=== PATIENT | male | born 1965 | race Caucasian/White ===

== ENCOUNTER 2023-02-09 19:56 | Emergency (ER) | payer MEDICARE ==
[2023-02-09 21:16] LABS: Absolute Neutrophil Ct (ANC) 3.44 x10^3/uL (1.4-6.9); BASOPHIL % 0.7 % (0.0-0.4); Basophil (Absolute #) 0.04 x10^3/uL (0-0.4); Eosinophil % 1.9 % (0.00-5.0); Eosinophil (Absolute #) 0.11 x10^3/uL (0-0.5); Hematocrit 45.2 % (42-50); Hemoglobin 15.5 g/dL (12.5-18.0); IMMATURE GRAN # 0.01 x10^3u/L (0.00-0.03); IMMATURE GRAN % 0.2 % (0.00-0.4); Lymphocyte (Absolute #) 1.64 x10^3/uL (1.0-4.6); Lymphocytes % 28.9 % (24.0-44.0); Mean Cell Volume 90.2 fL (78-100); Mean Corpuscular Hemoglobin 30.9 pg (26-32); Mean Corpuscular Hgb Concent. 34.3 g/dL (32-36); Mean Platelet Volume 9.6 fL (7.5-11.0); Monocyte (Absolute #) 0.43 x10^3/uL (0.0-1.3); Monocytes % 7.6 % (0.0-12.0); Neutrophil % 60.7 % (36.0-66.0); Platelet Count 253 x10^3/uL (150-450); Red Blood Count 5.01 x10^6/uL (4.1-5.6); Red Cell Distribution Width 12.4 % (11.5-14.0); White Blood Count 5.7 x10^3/uL (4.0-10.5)
[2023-02-09 21:26] LABS: ALBUMIN 4.1 g/dL (3.5-5.0); ALKALINE PHOSPHATASE 97 U/L (38-126); ANION GAP 16.2 MEQ/L (5-15); BLOOD UREA NITROGEN 9 mg/dL (9-20); CHLORIDE 94 mmol/L (98-107); Calcium 8.6 mg/dL (8.4-10.2); Carbon Dioxide 27 mmol/L (22-30); Creatinine 1 0.96 mg/dL (0.66-1.25); EST GLOMERULAR FILTRATION RATE > 60.0 ML/MIN; Glucose 439 mg/dL (74-106); Potassium 3.5 mmol/L (3.5-5.1); SGOT/AST 25 U/L (17-59); SGPT/ALT 27 U/L (0-50); SODIUM 134 mmol/L (137-145); Total Protein 7.3 g/dL (6.3-8.2)
[2023-02-09 21:49] LABS: INFLUENZA A NEGATIVE (NEGATIVE); INFLUENZA B NEGATIVE (NEGATIVE); RESPIRATORY SYNCTIAL VIRUS NEGATIVE (NEGATIVE); SARS-CoV-2 Xpert Express NEGATIVE (NEGATIVE)
--- NOTE | 2023-02-09 23:05 | ERPHSYRPT ---
- History of Present Illness Time Seen by Provider: 02/09/23 20:50 Source: patient Exam Limitations: no limitations Patient Subjective Stated Complaint: pt states he has been having chest congestion and back pain, has persistent cough, body aches and pain. Triage Nursing Assessment: pt alert and oriented, answers questions approp. pt ambulatory with steady gait noted. pt reports shortness of breath with exertion. lung sounds cta bilat. skin warm and dry. pt c/o pain in upper back today. states yesterday pain started in lower back. Physician History: Patient is a 58-year-old male presents to emergency department for evaluation of cough congestion body aches mild shortness of breath with exertion. Patient has been experiencing some mild upper back pain over the past day. No trauma. No fever. No nausea vomiting or diaphoresis. Symptoms are mild to moderate in intensity. No specific worsening improving factors. Patient voices no other complaints concerns at this time. Portions of this note were created with voice recognition technology. There may be grammatical, spelling, punctuation or sound alike errors Timing/Duration: yesterday Activities at Onset: none Severity of Dyspnea-Max: moderate Severity of Dyspnea-Current: mild Possible Cause: occasional episodes Modifying Factors: Improves With: nothing Associated Symptoms: No chest pain/discomfort, No fever, No loss of appetite, No lightheadedness, No wheezing, No dizziness, No lightheadedness, No leg swelling, No painful breathing, No tightness Allergies/Adverse Reactions: No Known Drug Allergies Allergy (Verified 02/09/23 20:37) Home Medications: No Home Meds 05/01/12 [History] Hx Tetanus, Diphtheria Vaccination/Date Given: No Hx Influenza Vaccination/Date Given: No Hx Pneumococcal Vaccination/Date Given: No Immunizations Up to Date: Yes Travel Risk - International Travel Have you traveled outside of the country in past 3 weeks: No - Coronavirus Screening Are you exhibiting any of the following symptoms?: No Symptoms: Cough: New Onset, Shortness of Breath, Vomiting/Diarrhea, Loss of Taste or Smell, Headaches/Body Aches/Fatigue Close contact with a COVID-19 positive Pt in past 14-21 Days: No - Vaccine Status Have you recieved a Covid-19 vaccination: Yes Grease Remover: Moderna - Vaccination Dates Date of 2cond Vaccination (if applicable): 2020 - Review of Systems Constitutional: No Symptoms, No Fever, No Chills Eyes: No Symptoms Ears, Nose, & Throat: No Symptoms Respiratory: No Symptoms, No Cough, No Dyspnea Cardiac: No Symptoms, No Chest Pain, No Edema, No Syncope Abdominal/Gastrointestinal: No Symptoms, No Abdominal Pain, No Nausea, No Vomiting, No Diarrhea Genitourinary Symptoms: No Symptoms, No Dysuria Musculoskeletal: No Symptoms, No Back Pain, No Neck Pain Skin: No Symptoms, No Rash Neurological: No Symptoms, No Dizziness, No Focal Weakness, No Sensory Changes Psychological: No Symptoms Endocrine: No Symptoms Hematologic/Lymphatic: No Symptoms Immunological/Allergic: No Symptoms All Other Systems: Reviewed and Negative - Past Medical History Pertinent Past Medical History: Yes Neurological History: Peripheral Neuropathy Cardiac History: Hypertension Endocrine Medical History: Diabetes Type II GI Medical History: GERD - Past Surgical History Past Surgical History: Yes Other Surgical History: tarsel tunnel bilat, heel spur lt foot, rt knee scope x2 - Social History Smoking Status: Former smoker Exposure to second hand smoke: Yes Drug Use: none Patient Lives Alone: No - Nursing Vital Signs Nursing Vital Signs: Initial Vital Signs Temperature 97.8 F 02/09/23 20:20 Pulse Rate 97 H 02/09/23 20:20 Respiratory Rate 18 02/09/23 20:20 Blood Pressure 166/97 02/09/23 20:20 O2 Sat by Pulse Oximetry 99 02/09/23 20:20 Pain Scale Pain Intensity 0 - Physical Exam General Appearance: no apparent distress, alert Eye Exam: PERRL/EOMI, eyes nml inspection Ears, Nose, Throat Exam: hearing grossly normal, normal ENT inspection, normal pharynx Neck Exam: normal inspection, supple Respiratory Exam: normal breath sounds, lungs clear, No respiratory distress Cardiovascular/Chest Exam: normal heart sounds, regular rate/rhythm Abdominal/Gastrointestinal Exam: soft, normal bowel sounds, No tenderness, No distention, No mass Extremity Exam: non-tender, normal range of motion, normal inspection, no calf tenderness, no pedal edema Neurologic Exam: alert, oriented x 3, cooperative, mission assessment specialist II-XII nml as tested, sensation nml, No motor deficits Skin Exam: normal color, warm, No dry Lymphatic Exam: No adenopathy SpO2 Interpretation: normal SpO2: 98 O2 Delivery: Room Air - Course Nursing assessment & vital signs reviewed: Yes EKG Interpreted by Me: RATE, Sinus Rhythm, NORMAL AXIS, NORMAL INTERVALS (Probable anteroseptal infarct recent) - CT Exams Chest CT Interpretation: Tele-radiologist Report (Calcified pulmonary granuloma. Located left upper lobe. Subtle alveolar opacities are seen in the upper lobes bilaterally. Spondylosis is demonstrated. There is narrowing of the interverte bral discs at T2-3-4. There is approximately 3 mm anterior malalignment of T2 in relation to T3 with mild s) Ordered Tests: Active Orders 24 hr Category Date Time Status Jet Aircraft Servicer STAT Care 02/09/23 20:39 Active EKG-ER Only STAT Care 02/09/23 20:38 Active IV Insertion STAT Care 02/09/23 20:38 Active CHEST 1 VIEW (PORTABLE) Stat Exams 02/09/23 21:33 Taken CHEST WITH CONTRAST [CT] Stat Exams 02/09/23 23:33 Taken CBC Q48H Lab 02/11/23 06:00 Ordered CBC Q48H Lab 02/13/23 06:00 Ordered CBC Q48H Lab 02/15/23 06:00 Ordered CBC Q48H Lab 02/17/23 06:00 Ordered CBC Q48H Lab 02/19/23 06:00 Ordered CBC Q48H Lab 02/21/23 06:00 Ordered CBC Q48H Lab 02/23/23 06:00 Ordered CBC Stat Lab 02/10/23 03:03 Completed CBC W DIFF Stat Lab 02/09/23 20:40 Completed CMP Stat Lab 02/09/23 20:40 Completed D-DIMER QUANTITATIVE Stat Lab 02/09/23 20:40 Completed Lactic Acid Routine Lab 02/10/23 00:45 Completed Lactic Acid Stat Lab 02/09/23 20:48 Completed POCT GLUCOSE Stat Lab 02/10/23 01:45 Completed PROTIME WITH INR Stat Lab 02/10/23 03:03 Completed PTT Q4H Lab 02/10/23 06:30 Ordered PTT Q4H Lab 02/10/23 10:30 Ordered PTT Q4H Lab 02/10/23 14:30 Ordered PTT Q4H Lab 02/10/23 18:30 Ordered PTT Q4H Lab 02/10/23 22:30 Ordered PTT Q4H Lab 02/11/23 02:30 Ordered PTT Q4H Lab 02/11/23 06:30 Ordered PTT Q4H Lab 02/11/23 10:30 Ordered PTT Q4H Lab 02/11/23 14:30 Ordered PTT Q4H Lab 02/11/23 18:30 Ordered PTT Q4H Lab 02/11/23 22:30 Ordered PTT Stat Lab 02/10/23 03:03 Completed TROPONIN Q4H Lab 02/09/23 20:40 Completed TROPONIN Q4H Lab 02/10/23 00:30 Completed TROPONIN Q4H Lab 02/10/23 04:45 Ordered Medication Summary Generic Name Dose Route Start Last Admin Trade Name Freq PRN Reason Stop Dose Admin Heparin Sodium/Dextrose 25,000 units in 250 mls @ 11.049 mls/hr 02/10/23 02:30 02/10/23 03:25 Heparin 25,000 Units/D5w: Use Order Set Ita IV 03/12/23 02:29 12 units/kg/hr .[id number] MOUNIKA 11.049 mls/hr Administration Protocol 12 UNITS/KG/HR Discontinued Medications Generic Name Dose Route Start Last Admin Trade Name Freq PRN Reason Stop Dose Admin Heparin Sodium (Beef Lung) 5,000 unit 02/10/23 02:24 02/10/23 03:25 Heparin 5000 Units/0.5 Ml 5,000 Unit/0.5 Ml Syr IV 02/10/23 02:25 5,000 unit STAT ONE Administration Heparin Sodium (Beef Lung) Confirm 02/10/23 02:33 Heparin 5000 Units/0.5 Ml 5,000 Unit/0.5 Ml Syr Administered 02/10/23 02:34 Dose 5,000 unit .ROUTE .STK-MED ONE Sodium Chloride 1,000 mls @ 999 mls/hr 02/10/23 00:00 02/10/23 01:32 Sodium Chloride 0.9% 1000 Ml IV 02/10/23 01:00 Infused .Q1H1M STA Infusion Sodium Chloride Confirm 02/10/23 00:03 Sodium Chloride 0.9% 1000 Ml Administered 02/10/23 00:04 Dose 1,000 mls @ ud .ROUTE .STK-MED ONE Levofloxacin 500 mg 02/10/23 02:05 02/10/23 02:08 Levofloxacin 500 Mg Tablet PO 02/10/23 02:06 500 mg STAT ONE Administration Levofloxacin Confirm 02/10/23 02:08 Levofloxacin 500 Mg Tablet Administered 02/10/23 02:09 Dose 500 mg .ROUTE .STK-MED ONE Lab/Rad Data: Laboratory Result Diagrams 02/10/23 03:03 02/09/23 20:40 Laboratory Results 02/10/23 02/10/23 02/10/23 Range/Units 03:03 03:03 01:45 WBC 6.0 (4.0-10.5) x10^3/uL RBC 5.09 (4.1-5.6) x10^6/uL Hgb 15.7 (12.5-18.0) g/dL Hct 46.4 (42-50) % MCV 91.2 (78-100) fL MCH 30.8 (26-32) pg MCHC 33.8 (32-36) g/dL RDW 12.2 (11.5-14.0) % Plt Count 254 (150-450) x10^3/uL MPV 9.1 (7.5-11.0) fL Gran % (36.0-66.0) % Immature Gran % (Auto) (0.00-0.4) % Nucleat RBC Rel Count (0.00-0.1) % Eos # (Auto) (0-0.5) x10^3/uL Immature Gran # (Auto) (0.00-0.03) x10^3u/L Absolute Lymphs (auto) (1.0-4.6) x10^3/uL Absolute Monos (auto) (0.0-1.3) x10^3/uL Absolute Nucleated RBC (0.00-0.01) x10^3u/L Lymphocytes % (24.0-44.0) % Monocytes % (0.0-12.0) % Eosinophils % (0.00-5.0) % Basophils % (0.0-0.4) % Absolute Granulocytes (1.4-6.9) x10^3/uL Basophils # (0-0.4) x10^3/uL PT 9.6 (9.4-12.5) SECONDS INR 0.87 (0.8-3.0) APTT 25.7 (25.1-36.5) SECONDS D-Dimer (0.0-0.50) mg/L Sodium (137-145) mmol/L Potassium (3.5-5.1) mmol/L Chloride (98-107) mmol/L Carbon Dioxide (22-30) mmol/L Anion Gap (5-15) MEQ/L BUN (9-20) mg/dL Creatinine (0.66-1.25) mg/dL Estimated GFR ML/MIN Glucose (74-106) mg/dL POC Glucometer 137 H (74 to 106) mg/dL Lactic Acid Calcium (8.4-10.2) mg/dL Total Bilirubin (0.2-1.3) mg/dL AST (17-59) U/L ALT (0-50) U/L Alkaline Phosphatase (38-126) U/L Troponin I (0.000-0.034) ng/mL Serum Total Protein (6.3-8.2) g/dL Albumin (3.5-5.0) g/dL Influenza Type A Ag (NEGATIVE) Influenza Type B Ag (NEGATIVE) RSV (PCR) (NEGATIVE) SARS-CoV-2 (PCR) (NEGATIVE) 02/10/23 02/10/23 02/09/23 Range/Units 00:45 00:30 20:55 WBC (4.0-10.5) x10^3/uL RBC (4.1-5.6) x10^6/uL Hgb (12.5-18.0) g/dL Hct (42-50) % MCV (78-100) fL MCH (26-32) pg MCHC (32-36) g/dL RDW (11.5-14.0) % Plt Count (150-450) x10^3/uL MPV (7.5-11.0) fL Gran % (36.0-66.0) % Immature Gran % (Auto) (0.00-0.4) % Nucleat RBC Rel Count (0.00-0.1) % Eos # (Auto) (0-0.5) x10^3/uL Immature Gran # (Auto) (0.00-0.03) x10^3u/L Absolute Lymphs (auto) (1.0-4.6) x10^3/uL Absolute Monos (auto) (0.0-1.3) x10^3/uL Absolute Nucleated RBC (0.00-0.01) x10^3u/L Lymphocytes % (24.0-44.0) % Monocytes % (0.0-12.0) % Eosinophils % (0.00-5.0) % Basophils % (0.0-0.4) % Absolute Granulocytes (1.4-6.9) x10^3/uL Basophils # (0-0.4) x10^3/uL PT (9.4-12.5) SECONDS INR (0.8-3.0) APTT (25.1-36.5) SECONDS D-Dimer (0.0-0.50) mg/L Sodium (137-145) mmol/L Potassium (3.5-5.1) mmol/L Chloride (98-107) mmol/L Carbon Dioxide (22-30) mmol/L Anion Gap (5-15) MEQ/L BUN (9-20) mg/dL Creatinine (0.66-1.25) mg/dL Estimated GFR ML/MIN Glucose (74-106) mg/dL POC Glucometer (74 to 106) mg/dL Lactic Acid 1.3 Calcium (8.4-10.2) mg/dL Total Bilirubin (0.2-1.3) mg/dL AST (17-59) U/L ALT (0-50) U/L Alkaline Phosphatase (38-126) U/L Troponin I 0.021 (0.000-0.034) ng/mL Serum Total Protein (6.3-8.2) g/dL Albumin (3.5-5.0) g/dL Influenza Type A Ag NEGATIVE (NEGATIVE) Influenza Type B Ag NEGATIVE (NEGATIVE) RSV (PCR) NEGATIVE (NEGATIVE) SARS-CoV-2 (PCR) NEGATIVE (NEGATIVE) 02/09/23 02/09/23 02/09/23 Range/Units 20:48 20:40 20:40 WBC (4.0-10.5) x10^3/uL RBC (4.1-5.6) x10^6/uL Hgb (12.5-18.0) g/dL Hct (42-50) % MCV (78-100) fL MCH (26-32) pg MCHC (32-36) g/dL RDW (11.5-14.0) % Plt Count (150-450) x10^3/uL MPV (7.5-11.0) fL Gran % (36.0-66.0) % Immature Gran % (Auto) (0.00-0.4) % Nucleat RBC Rel Count (0.00-0.1) % Eos # (Auto) (0-0.5) x10^3/uL Immature Gran # (Auto) (0.00-0.03) x10^3u/L Absolute Lymphs (auto) (1.0-4.6) x10^3/uL Absolute Monos (auto) (0.0-1.3) x10^3/uL Absolute Nucleated RBC (0.00-0.01) x10^3u/L Lymphocytes % (24.0-44.0) % Monocytes % (0.0-12.0) % Eosinophils % (0.00-5.0) % Basophils % (0.0-0.4) % Absolute Granulocytes (1.4-6.9) x10^3/uL Basophils # (0-0.4) x10^3/uL PT (9.4-12.5) SECONDS INR (0.8-3.0) APTT (25.1-36.5) SECONDS D-Dimer 0.93 H* (0.0-0.50) mg/L Sodium (137-145) mmol/L Potassium (3.5-5.1) mmol/L Chloride (98-107) mmol/L Carbon Dioxide (22-30) mmol/L Anion Gap (5-15) MEQ/L BUN (9-20) mg/dL Creatinine (0.66-1.25) mg/dL Estimated GFR ML/MIN Glucose (74-106) mg/dL POC Glucometer (74 to 106) mg/dL Lactic Acid 3.3 H Calcium (8.4-10.2) mg/dL Total Bilirubin (0.2-1.3) mg/dL AST (17-59) U/L ALT (0-50) U/L Alkaline Phosphatase (38-126) U/L Troponin I 0.027 (0.000-0.034) ng/mL Serum Total Protein (6.3-8.2) g/dL Albumin (3.5-5.0) g/dL Influenza Type A Ag (NEGATIVE) Influenza Type B Ag (NEGATIVE) RSV (PCR) (NEGATIVE) SARS-CoV-2 (PCR) (NEGATIVE) 02/09/23 02/09/23 02/09/23 Range/Units 20:40 20:40 00:45 WBC 5.7 (4.0-10.5) x10^3/uL RBC 5.01 (4.1-5.6) x10^6/uL Hgb 15.5 (12.5-18.0) g/dL Hct 45.2 (42-50) % MCV 90.2 (78-100) fL MCH 30.9 (26-32) pg MCHC 34.3 (32-36) g/dL RDW 12.4 (11.5-14.0) % Plt Count 253 (150-450) x10^3/uL MPV 9.6 (7.5-11.0) fL Gran % 60.7 (36.0-66.0) % Immature Gran % (Auto) 0.2 (0.00-0.4) % Nucleat RBC Rel Count 0.0 (0.00-0.1) % Eos # (Auto) 0.11 (0-0.5) x10^3/uL Immature Gran # (Auto) 0.01 (0.00-0.03) x10^3u/L Absolute Lymphs (auto) 1.64 (1.0-4.6) x10^3/uL Absolute Monos (auto) 0.43 (0.0-1.3) x10^3/uL Absolute Nucleated RBC 0.00 (0.00-0.01) x10^3u/L Lymphocytes % 28.9 (24.0-44.0) % Monocytes % 7.6 (0.0-12.0) % Eosinophils % 1.9 (0.00-5.0) % Basophils % 0.7 (0.0-0.4) % Absolute Granulocytes 3.44 (1.4-6.9) x10^3/uL Basophils # 0.04 (0-0.4) x10^3/uL PT (9.4-12.5) SECONDS INR (0.8-3.0) APTT (25.1-36.5) SECONDS D-Dimer (0.0-0.50) mg/L Sodium 134 L (137-145) mmol/L Potassium 3.5 (3.5-5.1) mmol/L Chloride 94 L (98-107) mmol/L Carbon Dioxide 27 (22-30) mmol/L Anion Gap 16.2 H (5-15) MEQ/L BUN 9 (9-20) mg/dL Creatinine 0.96 (0.66-1.25) mg/dL Estimated GFR > 60.0 ML/MIN Glucose 439 H (74-106) mg/dL POC Glucometer (74 to 106) mg/dL Lactic Acid Cancelled Calcium 8.6 (8.4-10.2) mg/dL Total Bilirubin 0.70 (0.2-1.3) mg/dL AST 25 (17-59) U/L ALT 27 (0-50) U/L Alkaline Phosphatase 97 (38-126) U/L Troponin I (0.000-0.034) ng/mL Serum Total Protein 7.3 (6.3-8.2) g/dL Albumin 4.1 (3.5-5.0) g/dL Influenza Type A Ag (NEGATIVE) Influenza Type B Ag (NEGATIVE) RSV (PCR) (NEGATIVE) SARS-CoV-2 (PCR) (NEGATIVE) - Progress Progress: improved Air Movement: good Progress Note: Repeat EKG suggestive of ST elevation with anterior injury. However troponin still in negative range. Trending downward. Patient has no active chest pain 02/10/23 02:26 Work-up includes chest x-ray unremarkable. CT chest suggestive of possible subtle upper lobe pneumonia. CBC within normal limits. CMP shows mild hyponatremia at 134. Patient received IV fluids. COVID-negative. D-dimer positive. CTA chest negative. Patient's initial presentation revealed a lactic acidosis of 3.3. After IV fluids lactic acidosis improved to 1.3. Troponin in the normal range x2. However EKG appears/suggestive of ACS. We will admit patient. For further evaluation and treatment for possible ACS. Coags obtained. We will initiate heparin drip. However no nitro administered as patient has no chest pain at this time. 02/10/23 02:27 Complexity of problem addressed is moderate. New diagnosis with uncertain prognosis no critical care time Test ordered. Test reviewed. 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 Discussion of management discussed with Dr. West. Dr. West excepted transfer. Activators hospitalist at [facility]. Risk of complication and or morbidity/mortality of management is high. Patient will be transferred for further evaluation and treatment. Dr. Carlton will be the guzzler builder on consult upon transfer. Patient agrees to transfer to [facility] for further evaluation and treatment. Portions of this note were created with voice recognition technology. There may be grammatical, spelling, punctuation or sound alike errors 02/10/23 06:50 Blood Culture(s) Obtained: No Antibiotics given: No Counseled pt/family regarding: lab results, diagnosis, rad results - Departure Departure Disposition: Observation Clinical Impression: Elevated d-dimer, Lactic acidosis, Hyperglycemia, Pneumonia Condition: Stable Critical Care Time: No Referrals: CHAD EM NP [Primary Care Provider] - Follow up/PCP as directed Instructions: Pneumonia, Adult ED Additional Instructions: Discharge/Care Plan ANNE MARIE MORROW was seen on 02/10/23 in the Emergency Room. The patient was counseled regarding Diagnosis,Lab results, Imaging studies, need for follow up and when to return to the Emergency Room. Prescriptions given: Discharge Note I have spoken with the patient and/or caregivers. I have explained the patient's condition, diagnosis and treatment plan based on the information available to me at this time. I have answered the patient's and/or caregiver's questions and addressed any concerns. The patient and/or caregivers have as good understanding of the patient's diagnosis, condition and treatment plan as can be expected at this point. The vital signs have been stable. The patient's condition is stable and appropriate for discharge from the emergency department. The patient will pursue further outpatient evaluation with the primary care physician or other designated or consulting physician as outlined in the discharge instructions. The patient and/or caregivers are agreeable to this plan of care and follow-up instructions have been explained in detail. The patient and/or caregivers have received these instruction. The patient/and or caregivers are aware that any significant change in condition or worsening of symptoms should prompt an immediate return to this or the closest emergency department or call 911. Prescriptions: Levofloxacin [Levaquin 500 MG Tablet] 500 mg PO DAILY #7 tablet
[2023-02-10] MEDS ORDERED: Sodium Chloride 0.9% 1000 ML 1,000 ML IV STA
[2023-02-10] MEDS ORDERED: Sodium Chloride 0.9% 1000 ML 1,000 ML ONE (00:03)
[2023-02-10] MEDS ORDERED: Levofloxacin 500 MG Tablet PO ONE (02:05)
[2023-02-10] MEDS ORDERED: Levofloxacin 500 MG Tablet ONE (02:08)
[2023-02-10] MEDS ORDERED: HEPARIN 5000 UNITS/0.5 ML (HIGH RISK MED) IV ONE (02:24)
[2023-02-10] MEDS ORDERED: Heparin 25,000 units/D5W: USE ORDER SET PROTO 25,000 UNITS/250 ML BAG IV SCH (02:30)
[2023-02-10] MEDS ORDERED: Heparin 25,000 units/D5W: USE ORDER SET PROTO 25,000 UNITS/250 ML BAG IV ONE (02:33)
[2023-02-10] MEDS ORDERED: HEPARIN 5000 UNITS/0.5 ML (HIGH RISK MED) ONE (02:33)
[2023-02-10 03:05] LABS: Hematocrit 46.4 % (42-50); Hemoglobin 15.7 g/dL (12.5-18.0); Mean Cell Volume 91.2 fL (78-100); Mean Corpuscular Hemoglobin 30.8 pg (26-32); Mean Corpuscular Hgb Concent. 33.8 g/dL (32-36); Mean Platelet Volume 9.1 fL (7.5-11.0); Platelet Count 254 x10^3/uL (150-450); Red Blood Count 5.09 x10^6/uL (4.1-5.6); Red Cell Distribution Width 12.2 % (11.5-14.0)
[2023-02-10 03:21] LABS: INR 0.87 (0.8-3.0); PROTIME 9.6 SECONDS (9.4-12.5); PTT 25.7 SECONDS (25.1-36.5)
--- NOTE | 2023-02-10 08:48 | XRAY ---
Indication: Short of breath. Elevated d-dimer. Multiple contiguous axial images obtained through the chest using 80 cc Isovue 370 contrast and PE protocol. Comparison: None Good opacification of the pulmonary arteries to include the lobar and segmental branches. No pulmonary embolus. Heart not enlarged. Aorta is normal in course and caliber. No pathologic mediastinal/hilar lymphadenopathy. Lungs demonstrate subtle patchy left upper lobe/lingula ground glass airspace disease. No consolidation or large effusion. Incidental small left apical calcified granuloma. Bony thorax intact with moderate degenerative changes throughout the spine greatest at T2-T4 levels. Limited upper abdomen including adrenal glands are unremarkable. Impression: 1. Negative pulmonary embolus. 2. Subtle patchy left upper lobe/lingula ground glass airspace disease. 2. Chronic findings including degenerative spondylosis and old granulomatous disease. Comment: Preliminary interpretation made by [facility]. No critical discrepancy.
--- NOTE | 2023-02-10 08:48 | XRAY ---
Indication: Cough and dyspnea on exertion. Comparison: May 01, 2012 Portable apical lordotic chest demonstrates new CT proven subtle lingula groundglass airspace disease. Remaining heart and lungs unremarkable again with incidental left apical calcified granuloma. Bony thorax intact again with mild degenerative changes. New bilateral nipple jewelry.
[2023-02-10 14:09] VITALS: BP 180/91; PULSE 97; O2SAT 97
== END 2023-02-10 14:46 | disposition short-term general hospital (02) ==
LOC: ED 19:56
DX: J18.9 Pneumonia, unspecified organism (principal); R79.1 Abnormal coagulation profile; E87.20 Acidosis, unspecified; E11.65 Type 2 diabetes mellitus with hyperglycemia; R05.9 Cough, unspecified; M79.10 Myalgia, unspecified site; R06.02 Shortness of breath; M54.6 Pain in thoracic spine; E11.42 Type 2 diabetes mellitus with diabetic polyneuropathy; I10 Essential (primary) hypertension
CPT/HCPCS: 0241U; 36000; 36415; 71045; 71260; 80053; 82947; 83605; 84484; 85025; 85027; 85379; 85610; 85730; 93005; 93041; 96360; 96365; 96374; 99285; J1644; A9270-GY

== ENCOUNTER 2025-09-01 23:11 | Emergency (ER) | payer MEDICARE ==
[2025-09-01 23:22] VITALS: BP 169/106; PULSE 110; RESP 18; TEMP 98.5; O2SAT 97
[2025-09-01] MEDS: XYLOCAINE 1% HCL 20 ML MDV IJ STA (23:36)
[2025-09-01] MEDS ORDERED: XYLOCAINE 1% HCL 20 ML MDV ONE (23:42)
[2025-09-02] MEDS ORDERED: Adacel Vial IM ONE (00:03)
[2025-09-02] MEDS: Adacel Vial IM ONE (00:05)
[2025-09-02] MEDS ORDERED: NORCO 5/325 MG ONE (00:05)
[2025-09-02] MEDS: NORCO 5/325 MG PO ONE (00:07)
--- NOTE | 2025-09-02 00:08 | ERPHSYRPT ---
- History of Present Illness Time Seen by Provider: 09/01/25 23:30 Source: patient, other Exam Limitations: no limitations Patient Subjective Stated Complaint: Pt. states, "I got a fishing hook stuck in my arm. My diana cut both the barbed sides, but the long part is still stuck in my arm." Triage Nursing Assessment: Pt. ambulates to room without difficulty accompanied by a friend. He is A&Ox3, Skin P/W/D, Resp. even unlabored. 3 small puncture sites to left arm above elbow. No active bleeding. Physician History: This is a right handed 60-year-old white male patient arrives by private vehicle accompanied by family/friend after accidentally having a fishhook stuck in the skin of his left elbow. He is friend/family member cut both of the barbed ends but ended up losing the remainder of the fishhook subcutaneously and the skin/tissue overlying the left elbow. Patient tetanus status is not up-to-date. Timing/Duration: today Quality: painful Severity: mild (To moderate) Location: extremities (Skin and subcutaneous tissue overlying left elbow) Possible Causes: other (Hilbert) Associated Symptoms: denies symptoms Allergies/Adverse Reactions: No Known Drug Allergies Allergy (Verified 02/09/23 20:37) Home Medications: Aspirin EC 81 mg [Ecotrin 81 mg] 81 mg PO DAILY 09/01/25 [History] Omeprazole 40 mg PO DAILY 09/01/25 [History] Rosuvastatin Calcium 20 mg PO DAILY 09/01/25 [History] Hx Tetanus, Diphtheria Vaccination/Date Given: No Hx Influenza Vaccination/Date Given: No Hx Pneumococcal Vaccination/Date Given: No Immunizations Up to Date: No Travel Risk - International Travel Have you traveled outside of the country in past 3 weeks: No - Emerging Infectious Disease Are you exhibiting symptoms associated with any current EIDs: No - Review of Systems Constitutional: No Symptoms Eyes: No Symptoms Ears, Nose, & Throat: No Symptoms Respiratory: No Symptoms Cardiac: No Symptoms Abdominal/Gastrointestinal: No Symptoms Genitourinary Symptoms: No Symptoms Musculoskeletal: No Symptoms Skin: Other (Hilbert embedded in the subcutaneous tissue overlying left elbow) Psychological: No Symptoms Endocrine: No Symptoms Hematologic/Lymphatic: No Symptoms Immunological/Allergic: No Symptoms All Other Systems: Reviewed and Negative - Past Medical History Pertinent Past Medical History: Yes Neurological History: Peripheral Neuropathy ENT History: Cataracts Cardiac History: High Cholesterol, Hypertension Endocrine Medical History: Diabetes Type II GI Medical History: GERD Psycho-Social History: Anxiety, Depression Other Medical History: restless legg - Past Surgical History Past Surgical History: Yes Other Surgical History: tarsel tunnel bilat, heel spur lt foot, rt knee scope x2 - Social History Smoking Status: Former smoker Exposure to second hand smoke: Yes Drug Use: none - Social Determinants of Health Will the patient participate in the screening: Declined to provide - Nursing Vital Signs Nursing Vital Signs: Initial Vital Signs Temperature 98.5 F 09/01/25 23:11 Pulse Rate 110 H 09/01/25 23:11 Respiratory Rate 18 09/01/25 23:11 Blood Pressure 169/106 09/01/25 23:11 O2 Sat by Pulse Oximetry 97 09/01/25 23:11 Pain Scale Pain Intensity 8 - Physical Exam General Appearance: no apparent distress, alert, anxiety Eye Exam: PERRL/EOMI, eyes nml inspection Ears, Nose, Throat Exam: normal ENT inspection, moist mucous membranes Neck Exam: normal inspection, non-tender, supple, full range of motion Respiratory Exam: airway intact, No chest tenderness, No respiratory distress Cardiovascular Exam: regular rate/rhythm, normal heart sounds, normal peripheral pulses Gastrointestinal/Abdomen Exam: No tenderness Rectal Exam: not done Back Exam: normal inspection, normal range of motion, No CVA tenderness, No vertebral tenderness Extremity Exam: normal inspection, normal range of motion, pelvis stable, tenderness (Tender area skin and subcutaneous tissue overlying the left elbow) Neurologic Exam: alert, oriented x 3, cooperative, novelty maker II-XII nml as tested, normal mood/affect, nml cerebellar function, nml station & gait, sensation nml Skin Exam: other (See above extremity section) Lymphatic Exam: No adenopathy SpO2 Interpretation: normal SpO2: 97 O2 Delivery: Room Air Procedures - Additional Procedures Progress: Timeout was performed at approximately 11:35 PM. The area overlying the fishhook entrance site and tender area was prepped with Betadine swabs. Next, approximately 5 cc total of lidocaine 1% plain was used to anesthetize the skin and subcutaneous tissue. Using 2 hemostats, we were able to locate and remove the remaining fishhook/foreign body. X-ray of the left elbow shows no retained radiopaque foreign body. The area was again cleaned with Betadine swabs and the skin edges of the 1-1/2 cm skin incision site made with 11 blade was approximated with 3 skin karena. There were no complications and patient tolerated the procedure well. The area was cleaned and dried and antibiotic ointment and bandage was placed overlying this site. - Course Nursing assessment & vital signs reviewed: Yes Ordered Tests: Active Orders 24 hr Category Date Time Status ELBOW (2 VIEW) Stat Exams 09/01/25 23:47 Ordered Medication Summary Discontinued Medications Generic Name Dose Route Start Last Admin Trade Name Gloria PRN Reason Stop Dose Admin Diphtheria/Tetanus/Acell Pertussis 0.5 ml 09/02/25 00:01 Tdap --Diph,Pertuss(Acell),Tet Vac/Pf 0.5 Ml Vial IM 09/02/25 00:02 .ONCE ONE Lidocaine HCl 5 ml 09/01/25 23:36 09/01/25 23:36 Lidocaine Hcl 1% 20 Ml Mdv 20 Ml Ml IJ 09/01/25 23:37 5 ml STAT STA Administration Lidocaine HCl Confirm 09/01/25 23:42 Lidocaine Hcl 1% 20 Ml Mdv 20 Ml Ml Administered 09/01/25 23:43 Dose 5 ml .ROUTE .Infoflow ONE - Progress Progress: improved, re-examined Progress Note: 09/02/25 00:07 My medical decision making and the assignment of low complexity of this patient's medical issue today is based on review of the patient's past medical history, review the patient's medication list, review the patient drug allergy list, history of present illness and physical findings on examination. The workup includes performing the foreign body removal followed by confirmation x- ray of the left elbow. Differential diagnosis included but not limited to foreign body in the subcutaneous tissue layer, no foreign body in the subcutaneous tissue layer, skin abrasion, skin laceration. I interpreted the preliminary x-ray report of left elbow. I see no retained radiopaque foreign body. Counseled pt/family regarding: diagnosis, need for follow-up, rad results Medical Desision Making - Independent Historian Additional History obtained from: Relative/friend - Diagnostic Testing Diagnostic test were ordered, analyzed, and reviewed by me: Yes Radiological Interpretation: Interpreted by me - Risk of complications Low Risk: Low risk of morbidity from additional dx testing or treatment - Departure Departure Disposition: Home Clinical Impression: Foreign body (FB) in soft tissue Condition: Stable Critical Care Time: No Referrals: CHAD EM NP [Primary Care Provider, [facility]] - Follow up/PCP as directed Additional Instructions: Keep the surgical site staple line dry for 24 hours. After 24 hours you may rinse the site off with warm soapy water. Blot dry use a vice chairman and reapply thin layer of antibiotic ointment of choice. Cover with a bandage. Staple removal in 8 to 10 days. Use plain Tylenol and ibuprofen if there are no contraindications to do so, for pain control.
--- NOTE | 2025-09-02 08:44 | XRAY ---
Indication: Foreign body. Comparison: None 3 view left elbow demonstrates posterior soft tissue swelling/emphysema. Tiny spurring radial head and olecranon process. No other bony, articular, or soft tissue abnormalities.
== END 2025-09-02 00:25 | disposition home or self-care (01) ==
LOC: ED 23:11
DX: S51.022A Laceration with foreign body of left elbow, initial encounter (principal); W45.3XXA Fishing hook entering through skin, initial encounter; I10 Essential (primary) hypertension; E11.42 Type 2 diabetes mellitus with diabetic polyneuropathy; Z79.899 Other long term (current) drug therapy; Z23 Encounter for immunization

== ENCOUNTER 2025-09-15 14:50 | Observation (INO) | payer MEDICARE ==
[2025-09-15] MEDS ORDERED: PROVENTIL 2.5 MG/3 ML NEB IH ONE (15:25)
[2025-09-15 15:30] LABS: BASOPHIL % 0.5 % (0.2-1.2); Basophil (Absolute #) 0.06 x10^3/uL (0.01-0.08); Eosinophil (Absolute #) 0.14 x10^3/uL (0.04-0.54); Hematocrit 42.8 % (40.1-51.0); Hemoglobin 14.3 g/dL (13.7-17.5); IMMATURE GRAN # 0.02 x10^3u/L (0.001-0.031); IMMATURE GRAN % 0.2 % (0.001-0.429); Lymphocyte (Absolute #) 1.85 x10^3/uL (1.32-3.57); Mean Corpuscular Hemoglobin 30.3 pg (25.7-32.2); Mean Corpuscular Hgb Concent. 33.4 g/dL (32.3-36.5); Monocyte (Absolute #) 1.00 x10^3/uL (0.30-0.82); NUCLEATED RBC # 0.00 x10^3u/L (0.00-0.012); NUCLEATED RBC % 0.0 % (0.00-0.2); Platelet Count 298 x10^3/uL (163-337); Red Blood Count 4.72 x10^6/uL (4.63-6.08); White Blood Count 13.0 x10^3/uL (4.23-9.07)
--- NOTE | 2025-09-15 15:30 | ERPHSYRPT ---
- History of Present Illness Patient Subjective Stated Complaint: patient states that he has recently gotten the pneumococcal, covid, and flu vaccine, congestion, body, patient states he has pproductive cough t Triage Nursing Assessment: patient presents to ed via private vehicle, patient able to ambulate into ed, patient alert and oriented x 4, patient skin p/w/d, complains of some sob, body aches, productive cough, congestion, patient has wheezing throughout all lung wood, oxygen saturation WNL at 96% on room air upon arrival, denies chest pain, afebrile, patient coughing up yellow phlegm Physician History: Cough congestion, onset of symptoms about 2 weeks ago, states symptoms started after he received his immunization for COVID/flu/pneumococcus(He received all of his immunizations 1 visit), He feels short of breath,He has no energy, Cough is nonproductive Timing/Duration: week(s) (2) Cough Quality/Degree: moderate Possible Cause: no prior episodes Modifying Factors: Improves With: lying down Associated Symptoms: nasal congestion, shortness of breath Allergies/Adverse Reactions: lisinopril Allergy (Verified 09/15/25 14:58) Home Medications: Aspirin EC 81 mg [Ecotrin 81 mg] 81 mg PO DAILY 09/01/25 [History] Omeprazole 40 mg PO DAILY 09/01/25 [History] Rosuvastatin Calcium 20 mg PO DAILY 09/01/25 [History] Buspirone HCl 5 mg [Buspar 5 mg] 5 mg PO BID 09/15/25 [History] Gabapentin 800 mg PO TID 09/15/25 [History] Hydroxyzine HCl 25 mg [Atarax 25 mg] 25 mg PO TID PRN 09/15/25 [History] Hx Tetanus, Diphtheria Vaccination/Date Given: Yes Hx Influenza Vaccination/Date Given: Yes Hx Pneumococcal Vaccination/Date Given: Yes Immunizations Up to Date: Yes Travel Risk - International Travel Have you traveled outside of the country in past 3 weeks: No - Emerging Infectious Disease Are you exhibiting symptoms associated with any current EIDs: Yes Symptoms: Diarrhea, Headaches/Body Aches/, Shortness of Breath - Past Medical History Pertinent Past Medical History: Yes Neurological History: Peripheral Neuropathy ENT History: Cataracts Cardiac History: High Cholesterol, Hypertension Endocrine Medical History: Diabetes Type II GI Medical History: GERD Psycho-Social History: Anxiety, Depression Other Medical History: restless legg - Past Surgical History Past Surgical History: Yes Other Surgical History: tarsel tunnel bilat, heel spur lt foot, rt knee scope x2 - Social History Smoking Status: Former smoker Exposure to second hand smoke: No Drug Use: none - Social Determinants of Health Will the patient participate in the screening: Yes Do you worry about a steady place to live?: No Do you have any problems with any of the following?: No known problems In the past 12 months,have you had to go without utilities?: No Transportation Issues: No Has anyone in your support network made you feel unsafe?: No Have you or anyone in your house had to go w/o enough food: No - Nursing Vital Signs Nursing Vital Signs: Initial Vital Signs Temperature 98.5 F 09/15/25 14:51 Pulse Rate 98 H 09/15/25 14:51 Respiratory Rate 14 09/15/25 14:51 Blood Pressure 154/89 09/15/25 14:51 O2 Sat by Pulse Oximetry 96 09/15/25 14:51 Pain Scale Pain Intensity 8 - Physical Exam General Appearance: no apparent distress, alert Eye Exam: PERRL/EOMI, eyes nml inspection Ears, Nose, Throat Exam: TMs normal, moist mucous membranes, pharyngeal erythema, other (Nasal congestion, postnasal drainage) Neck Exam: normal inspection, non-tender, supple, full range of motion, No Brudzinski, No Kernig's Respiratory Exam: rhonchi, wheezing, No respiratory distress Cardiovascular Exam: regular rate/rhythm, normal heart sounds Gastrointestinal/Abdomen Exam: soft, No tenderness Back Exam: normal inspection, No CVA tenderness, No vertebral tenderness Extremity Exam: normal inspection, normal range of motion Neurologic Exam: alert, oriented x 3, cooperative, normal mood/affect, sensation nml, No motor deficits Skin Exam: normal color, warm, dry, No rash Lymphatic Exam: No adenopathy SpO2 Interpretation: normal SpO2: 96 - Course EKG Interpreted by Me: RATE (97), Sinus Rhythm, NORMAL AXIS, NORMAL INTERVALS, NORMAL QRS, NORMAL ST-T Ordered Tests: Active Orders 24 hr Category Date Time Status EKG-ER Only STAT Care 09/15/25 15:15 Active IV Insertion STAT Care 09/15/25 15:40 Active CHEST 1 VIEW (PORTABLE) Stat Exams 09/15/25 15:15 Completed CBC W DIFF Stat Lab 09/15/25 15:25 Completed CMP Stat Lab 09/15/25 15:25 Completed Lactic Acid Stat Lab 09/15/25 15:25 Completed VENOUS BLOOD GAS Stat Lab 09/15/25 15:33 Completed Respiratory Therapy Assessment DAILY RT 09/15/25 15:40 Active Medication Summary Discontinued Medications Generic Name Dose Route Start Last Admin Trade Name Freq PRN Reason Stop Dose Admin Hydrocodone Bitart/Acetaminophen 1 tab 09/15/25 15:32 09/15/25 15:34 Hydrocodone/Apap 5/325 1 Tab Tablet PO 09/15/25 15:33 1 tab STAT ONE Administration Hydrocodone Bitart/Acetaminophen Confirm 09/15/25 15:34 Hydrocodone/Apap 5/325 1 Tab Tablet Administered 09/15/25 15:35 Dose 1 tab .ROUTE .STK-MED ONE Albuterol Sulfate 5 mg 09/15/25 15:15 09/15/25 15:33 Albuterol Sulfate 2.5 Mg/3 Ml Neb IH 09/15/25 15:16 5 mg STAT ONE Administration Albuterol Sulfate Confirm 09/15/25 15:25 Albuterol Sulfate 2.5 Mg/3 Ml Neb Administered 09/15/25 15:26 Dose 5 mg IH .STK-MED ONE Lab/Rad Data: Laboratory Result Diagrams 09/15/25 15:25 09/15/25 15:25 Laboratory Results 09/15/25 09/15/25 09/15/25 Range/Units 15:33 15:25 15:25 WBC (4.23-9.07) x10^3/uL RBC (4.63-6.08) x10^6/uL Hgb (13.7-17.5) g/dL Hct (40.1-51.0) % MCV (79.0-92.2) fL MCH (25.7-32.2) pg MCHC (32.3-36.5) g/dL RDW (11.6-14.4) % Plt Count (163-337) x10^3/uL MPV (9.4-12.4) fL Gran % (34.0-67.9) % Immature Gran % (Auto) (0.001-0.429) % Nucleat RBC Rel Count (0.00-0.2) % Eos # (Auto) (0.04-0.54) x10^3/uL Immature Gran # (Auto) (0.001-0.031) x10^3u/L Absolute Lymphs (auto) (1.32-3.57) x10^3/uL Absolute Monos (auto) (0.30-0.82) x10^3/uL Absolute Nucleated RBC (0.00-0.012) x10^3u/L Lymphocytes % (21.8-53.1) % Monocytes % (5.3-12.2) % Eosinophils % (0.8-7.0) % Basophils % (0.2-1.2) % Absolute Granulocytes (1.78-5.38) x10^3/uL Basophils # (0.01-0.08) x10^3/uL pO2/FiO2 Ratio 21.0 % VBG pH 7.44 H (7.32-7.42) VBG pCO2 at Pat Temp 34 L (42-55) mm/Hg VBG pO2 at Pat Temp 89 H (25-40) mm/Hg VBG HCO3 23.1 (22-28) meq/L VBG O2 Sat (Lillian) 97.7 (95-100) VBG Base Excess -0.4 (-2.0-2.0) VBG Hemoglobin 15.3 VBG Carboxyhemoglobin 3.1 (0.0-6.9) % T HGB POC Potassium 3.8 (3.5-5.1) Sodium 136 (135-145) mmol/L Potassium 3.7 (3.5-5.1) mmol/L Chloride 105 (98-107) mmol/L Carbon Dioxide 22 (22-30) mmol/L Anion Gap 13.3 (5-15) MEQ/L BUN 17 (9-20) mg/dL Creatinine 1.21 (0.66-1.25) mg/dL Estimated GFR 67.7 ML/MIN Glucose 183 H (74-106) mg/dL Lactic Acid (0.4-2.0) Calcium 9.2 (8.4-10.2) mg/dL Total Bilirubin 0.40 (0.2-1.3) mg/dL AST 28 (17-59) U/L ALT 24 (0-50) U/L Alkaline Phosphatase 89 (38-126) U/L Serum Total Protein 8.0 (6.3-8.2) g/dL Albumin 4.1 (3.5-5.0) g/dL Influenza Type A Ag NEGATIVE (NEGATIVE) Influenza Type B Ag NEGATIVE (NEGATIVE) RSV (PCR) NEGATIVE (NEGATIVE) SARS-CoV-2 (PCR) NEGATIVE (NEGATIVE) 09/15/25 09/15/25 Range/Units 15:25 15:25 WBC 13.0 H (4.23-9.07) x10^3/uL RBC 4.72 (4.63-6.08) x10^6/uL Hgb 14.3 (13.7-17.5) g/dL Hct 42.8 (40.1-51.0) % MCV 90.7 (79.0-92.2) fL MCH 30.3 (25.7-32.2) pg MCHC 33.4 (32.3-36.5) g/dL RDW 11.9 (11.6-14.4) % Plt Count 298 (163-337) x10^3/uL MPV 8.9 L (9.4-12.4) fL Gran % 76.2 H (34.0-67.9) % Immature Gran % (Auto) 0.2 (0.001-0.429) % Nucleat RBC Rel Count 0.0 (0.00-0.2) % Eos # (Auto) 0.14 (0.04-0.54) x10^3/uL Immature Gran # (Auto) 0.02 (0.001-0.031) x10^3u/L Absolute Lymphs (auto) 1.85 (1.32-3.57) x10^3/uL Absolute Monos (auto) 1.00 H (0.30-0.82) x10^3/uL Absolute Nucleated RBC 0.00 (0.00-0.012) x10^3u/L Lymphocytes % 14.3 L (21.8-53.1) % Monocytes % 7.7 (5.3-12.2) % Eosinophils % 1.1 (0.8-7.0) % Basophils % 0.5 (0.2-1.2) % Absolute Granulocytes 9.91 H (1.78-5.38) x10^3/uL Basophils # 0.06 (0.01-0.08) x10^3/uL pO2/FiO2 Ratio % VBG pH (7.32-7.42) VBG pCO2 at Pat Temp (42-55) mm/Hg VBG pO2 at Pat Temp (25-40) mm/Hg VBG HCO3 (22-28) meq/L VBG O2 Sat (Lillian) (95-100) VBG Base Excess (-2.0-2.0) VBG Hemoglobin VBG Carboxyhemoglobin (0.0-6.9) % T HGB POC Potassium (3.5-5.1) Sodium (135-145) mmol/L Potassium (3.5-5.1) mmol/L Chloride (98-107) mmol/L Carbon Dioxide (22-30) mmol/L Anion Gap (5-15) MEQ/L BUN (9-20) mg/dL Creatinine (0.66-1.25) mg/dL Estimated GFR ML/MIN Glucose (74-106) mg/dL Lactic Acid 0.9 (0.4-2.0) Calcium (8.4-10.2) mg/dL Total Bilirubin (0.2-1.3) mg/dL AST (17-59) U/L ALT (0-50) U/L Alkaline Phosphatase (38-126) U/L Serum Total Protein (6.3-8.2) g/dL Albumin (3.5-5.0) g/dL Influenza Type A Ag (NEGATIVE) Influenza Type B Ag (NEGATIVE) RSV (PCR) (NEGATIVE) SARS-CoV-2 (PCR) (NEGATIVE) - Progress Progress Note: 09/15/25 16:49 discussed results, patient requesting admission, consult to Hospitalist 09/15/25 17:06 Anaya the left elbow were removed by me, discussed case with hospitalist patient be placed in observation - Departure Departure Disposition: Observation Clinical Impression: Acute bacterial sinusitis Acute bronchitis Qualifiers: Bronchitis organism: unspecified organism Qualified Code(s): J20.9 - Acute bronchitis, unspecified Condition: Fair Critical Care Time: No Referrals: CHAD EM NP [[facility] Provider, [facility]] - Follow up/PCP as directed
[2025-09-15] MEDS: PROVENTIL 2.5 MG/3 ML NEB IH ONE (15:33)
[2025-09-15] MEDS: NORCO 5/325 MG PO ONE (15:34)
[2025-09-15] MEDS ORDERED: NORCO 5/325 MG ONE (15:34)
[2025-09-15 15:45] LABS: Calcium 9.2 mg/dL (8.4-10.2); Carbon Dioxide 22.0 mmol/L (22-30); Creatinine 1 1.21 mg/dL (0.66-1.25); EST GLOMERULAR FILTRATION RATE 67.7 ML/MIN; Glucose 183.0 mg/dL (74-106); Potassium 3.7 mmol/L (3.5-5.1); SGOT/AST 28.0 U/L (17-59); SGPT/ALT 24.0 U/L (0-50); Total Protein 8.0 g/dL (6.3-8.2)
[2025-09-15 15:47] LABS: VBG BASE EXCESS -0.4 (-2.0-2.0); VBG CARBOXYHEMOGLOBIN 3.1 % T HGB (0.0-6.9); VBG FIO2 21.0 %; VBG HCO3- 23.1 meq/L (22-28); VBG HEMOGLOBIN 15.3; VBG O2 SATURATION 97.7 (95-100); VBG PCO2 34.0 mm/Hg (42-55); VBG PO2 89.0 mm/Hg (25-40); VBG POTASSIUM 3.8 (3.5-5.1)
[2025-09-15 16:21] LABS: INFLUENZA A NEGATIVE (NEGATIVE); INFLUENZA B NEGATIVE (NEGATIVE); RESPIRATORY SYNCTIAL VIRUS NEGATIVE (NEGATIVE); SARS-CoV-2 Xpert Express NEGATIVE (NEGATIVE)
--- NOTE | 2025-09-15 16:31 | XRAY ---
Indication: Cough. Comparison: February 09, 2023 Portable apical lordotic chest again hyperinflated and clear with incidental left apical calcified granuloma. Heart not enlarged. Bony thorax intact again with mild degenerative changes. No new/acute findings.
[2025-09-15] MEDS ORDERED: ZITHROMAX IV*** 500 MG in Sodium Chloride 0.9% 250 ML 250 ML IV STA (17:13)
[2025-09-15] MEDS ORDERED: ROCEPHIN 1 GM / 100 ML NaCl 1 GM/100 ML IVPB IV ONE (17:16)
[2025-09-15] MEDS: ROCEPHIN 1 GM / 100 ML NaCl 1 GM/100 ML IVPB IV ONE (17:17)
--- NOTE | 2025-09-15 17:56 | PCM.HP ---
History of Present Illness - Chief Complaint Chief Complaint: sinusitis with bronchitis Date: 09/15/25 History of Present Illness: is a 60-year-old male with a past medical history of disabled d/t neuropathy, hypertension, hyperlipidemia, type II diabetes mellitus, gastroesophageal reflux disease, anxiety, depression, and restless leg syndrome. He presented to the emergency department with a two-week history of cough and nasal congestion. His reports that the symptoms began shortly after he received his COVID-19, influenza, and pneumococcal vaccinations, all administered during the same visit. The patient describes a moderate, nonproductive cough associated with shortness of breath and fatigue. He notes that his symptoms improve somewhat when lying down. After further discussion, the patient reports experiencing diarrhea for approximately two weeks, with poor appetite and difficulty keeping food down, though he denies vomiting. He has tried several [id number] medications, including Tylenol Cold and Flu, NyQuil, Tylenol Extra Strength, and cough drops, without significant relief. He also reports cold chills, body aches, shortness of breath, wheezing, and coughing up yellow mucus. He denies any known sick contacts and believes his symptoms began following his vaccinations. On evaluation, he was afebrile and maintaining oxygen saturation of 98% on room air. Laboratory studies were overall unremarkable except for a mildly elevated white blood cell count. Chest X-ray was negative for any acute cardiopulmonary process. In the emergency department, he was started on ceftriaxone and azithromycin for suspected bronchitis and upper respiratory infection. The patient requested inpatient admission due to persistent symptoms, weakness, and overall fatigue; therefore, he will be admitted for overnight observation. - Review of Systems Constitutional: Fever, Chills, Fatigue Eyes: No Symptoms Ears, Nose, & Throat: No Symptoms Respiratory: Cough, Short Of Breath Cardiac: No Chest Pain, No Edema, No Syncope Abdominal/Gastrointestinal: Diarrhea, No Abdominal Pain, No Nausea, No Vomiting Genitourinary Symptoms: No Dysuria Musculoskeletal: No Back Pain, No Neck Pain Skin: No Rash Neurological: No Dizziness, No Focal Weakness, No Sensory Changes Psychological: No Symptoms Endocrine: No Symptoms Hematologic/Lymphatic: No Symptoms Immunological/Allergic: No Symptoms Medications & Allergies Home Medications: Home Medication List Aspirin EC 81 mg [Ecotrin 81 mg] 81 mg PO DAILY 09/01/25 [History Confirmed 09/15/25] Omeprazole 40 mg PO DAILY 09/01/25 [History Confirmed 09/15/25] Rosuvastatin Calcium 20 mg PO DAILY 09/01/25 [History Confirmed 09/15/25] Buspirone HCl 5 mg [Buspar 5 mg] 5 mg PO BID 09/15/25 [History Confirmed 09/15/25] Gabapentin 800 mg PO TID 09/15/25 [History Confirmed 09/15/25] Hydroxyzine HCl 25 mg [Atarax 25 mg] 25 mg PO TID PRN 09/15/25 [History Confirmed 09/15/25] Allergies/Adverse Reactions: Allergies Allergy/AdvReac Type Severity Reaction Status Date / Time lisinopril Allergy Verified 09/15/25 14:58 - Past Medical History Past Medical History: Yes Neurological History: Peripheral Neuropathy ENT History: Cataracts Cardiac History: High Cholesterol, Hypertension Endocrine Medical History: Diabetes Type II GI Medical History: GERD Pyscho-Social History: Anxiety, Depression Comment: restless legg - Past Surgical History Past Surgical History: Yes Other Surgical History: tarsel tunnel bilat, heel spur lt foot, rt knee scope x2 Significant Family History: no pertinent family hx - Social History Smoking Status: Former smoker Exposure to second hand smoke: No Alcohol: Occasionally Drug Use: none - Social Determinants of Health Will the patient participate in the screening: Yes Do you worry about a steady place to live?: No Do you have any problems with any of the following?: No known problems In the past 12 months,have you had to go without utilities?: No Have you or anyone in your house had to go without enough: No Transportation Issues: No Has anyone in your support network made you feel unsafe?: No - Physical Exam Vital Signs: Vital Signs - 24 hr Temp Pulse Resp BP BP Pulse Ox 09/15/25 17:14 96 09/15/25 17:00 96 H 19 145/89 97 09/15/25 16:30 102 H 17 149/91 98 09/15/25 16:00 111 H 16 150/86 98 09/15/25 15:40 100 H 18 98 09/15/25 15:30 105 H 20 168/75 96 09/15/25 15:00 102 H 19 154/89 98 09/15/25 14:51 98.5 F 98 H 14 154/89 96 General Appearance: no apparent distress, alert Neurologic Exam: alert, oriented x 3, cooperative, normal mood/affect, nml cerebellar function, nml station & gait, sensation nml, No motor deficits Eye Exam: PERRL/EOMI, eyes nml inspection Ears, Nose, Throat Exam: normal ENT inspection, TMs normal, pharynx normal, moist mucous membranes Neck Exam: normal inspection, non-tender, supple, full range of motion Respiratory Exam: normal breath sounds, lungs clear, No respiratory distress Cardiovascular Exam: regular rate/rhythm, normal heart sounds, normal peripheral pulses Gastrointestinal/Abdomen Exam: soft, normal bowel sounds, No tenderness, No mass Back Exam: normal inspection, normal range of motion, No CVA tenderness, No vertebral tenderness Extremity Exam: normal inspection, normal range of motion, pelvis stable Skin Exam: normal color, warm, dry, No rash Lymphatic Exam: No adenopathy Results - Labs Lab/Micro Results: Lab Results-Last 24 Hours 09/15/25 09/15/25 09/15/25 Range/Units 15:25 15:25 15:25 WBC 13.0 H (4.23-9.07) x10^3/uL RBC 4.72 (4.63-6.08) x10^6/uL Hgb 14.3 (13.7-17.5) g/dL Hct 42.8 (40.1-51.0) % MCV 90.7 (79.0-92.2) fL MCH 30.3 (25.7-32.2) pg MCHC 33.4 (32.3-36.5) g/dL RDW 11.9 (11.6-14.4) % Plt Count 298 (163-337) x10^3/uL MPV 8.9 L (9.4-12.4) fL Gran % 76.2 H (34.0-67.9) % Immature Gran % (Auto) 0.2 (0.001-0.429) % Nucleat RBC Rel Count 0.0 (0.00-0.2) % Eos # (Auto) 0.14 (0.04-0.54) x10^3/uL Immature Gran # (Auto) 0.02 (0.001-0.031) x10^3u/L Absolute Lymphs (auto) 1.85 (1.32-3.57) x10^3/uL Absolute Monos (auto) 1.00 H (0.30-0.82) x10^3/uL Absolute Nucleated RBC 0.00 (0.00-0.012) x10^3u/L Lymphocytes % 14.3 L (21.8-53.1) % Monocytes % 7.7 (5.3-12.2) % Eosinophils % 1.1 (0.8-7.0) % Basophils % 0.5 (0.2-1.2) % Absolute Granulocytes 9.91 H (1.78-5.38) x10^3/uL Basophils # 0.06 (0.01-0.08) x10^3/uL pO2/FiO2 Ratio % VBG pH (7.32-7.42) VBG pCO2 at Pat Temp (42-55) mm/Hg VBG pO2 at Pat Temp (25-40) mm/Hg VBG HCO3 (22-28) meq/L VBG O2 Sat (Lillian) (95-100) VBG Base Excess (-2.0-2.0) VBG Hemoglobin VBG Carboxyhemoglobin (0.0-6.9) % T HGB POC Potassium (3.5-5.1) Sodium 136 (135-145) mmol/L Potassium 3.7 (3.5-5.1) mmol/L Chloride 105 (98-107) mmol/L Carbon Dioxide 22 (22-30) mmol/L Anion Gap 13.3 (5-15) MEQ/L BUN 17 (9-20) mg/dL Creatinine 1.21 (0.66-1.25) mg/dL Estimated GFR 67.7 ML/MIN Glucose 183 H (74-106) mg/dL Lactic Acid 0.9 (0.4-2.0) Calcium 9.2 (8.4-10.2) mg/dL Total Bilirubin 0.40 (0.2-1.3) mg/dL AST 28 (17-59) U/L ALT 24 (0-50) U/L Alkaline Phosphatase 89 (38-126) U/L Serum Total Protein 8.0 (6.3-8.2) g/dL Albumin 4.1 (3.5-5.0) g/dL Influenza Type A Ag (NEGATIVE) Influenza Type B Ag (NEGATIVE) RSV (PCR) (NEGATIVE) SARS-CoV-2 (PCR) (NEGATIVE) 09/15/25 09/15/25 Range/Units 15:25 15:33 WBC (4.23-9.07) x10^3/uL RBC (4.63-6.08) x10^6/uL Hgb (13.7-17.5) g/dL Hct (40.1-51.0) % MCV (79.0-92.2) fL MCH (25.7-32.2) pg MCHC (32.3-36.5) g/dL RDW (11.6-14.4) % Plt Count (163-337) x10^3/uL MPV (9.4-12.4) fL Gran % (34.0-67.9) % Immature Gran % (Auto) (0.001-0.429) % Nucleat RBC Rel Count (0.00-0.2) % Eos # (Auto) (0.04-0.54) x10^3/uL Immature Gran # (Auto) (0.001-0.031) x10^3u/L Absolute Lymphs (auto) (1.32-3.57) x10^3/uL Absolute Monos (auto) (0.30-0.82) x10^3/uL Absolute Nucleated RBC (0.00-0.012) x10^3u/L Lymphocytes % (21.8-53.1) % Monocytes % (5.3-12.2) % Eosinophils % (0.8-7.0) % Basophils % (0.2-1.2) % Absolute Granulocytes (1.78-5.38) x10^3/uL Basophils # (0.01-0.08) x10^3/uL pO2/FiO2 Ratio 21.0 % VBG pH 7.44 H (7.32-7.42) VBG pCO2 at Pat Temp 34 L (42-55) mm/Hg VBG pO2 at Pat Temp 89 H (25-40) mm/Hg VBG HCO3 23.1 (22-28) meq/L VBG O2 Sat (Lillian) 97.7 (95-100) VBG Base Excess -0.4 (-2.0-2.0) VBG Hemoglobin 15.3 VBG Carboxyhemoglobin 3.1 (0.0-6.9) % T HGB POC Potassium 3.8 (3.5-5.1) Sodium (135-145) mmol/L Potassium (3.5-5.1) mmol/L Chloride (98-107) mmol/L Carbon Dioxide (22-30) mmol/L Anion Gap (5-15) MEQ/L BUN (9-20) mg/dL Creatinine (0.66-1.25) mg/dL Estimated GFR ML/MIN Glucose (74-106) mg/dL Lactic Acid (0.4-2.0) Calcium (8.4-10.2) mg/dL Total Bilirubin (0.2-1.3) mg/dL AST (17-59) U/L ALT (0-50) U/L Alkaline Phosphatase (38-126) U/L Serum Total Protein (6.3-8.2) g/dL Albumin (3.5-5.0) g/dL Influenza Type A Ag NEGATIVE (NEGATIVE) Influenza Type B Ag NEGATIVE (NEGATIVE) RSV (PCR) NEGATIVE (NEGATIVE) SARS-CoV-2 (PCR) NEGATIVE (NEGATIVE) - Radiology Impressions Radiology Exams & Impressions: Radiology Procedures Category Date Time Status CHEST 1 VIEW (PORTABLE) Stat Exams 09/15/25 15:15 Completed - Other Procedures and Tests Respiratory Therapy 09/15/25 15:40 Respiratory Therapy Assessment DAILY Assessment/Plan (1) Acute bacterial sinusitis Current Visit: Yes Status: Acute Assessment & Plan: - Ceftriaxone IV - CBC, CMP reviewed - Flonase - Flu/COVID/RSV negative - Tylenol, compazine PRN Code(s): J01.90 - ACUTE SINUSITIS, UNSPECIFIED; B96.89 - OTH BACTERIAL AGENTS THE CAUSE OF DISEASES CLASSD [id number] (2) Acute bronchitis Current Visit: Yes Status: Acute Qualifiers: Bronchitis organism: unspecified organism Qualified Code(s): J20.9 - Acute bronchitis, unspecified Assessment & Plan: - CXR negative for acute concern - Tessalon, mucinex, duonebs - RA 96% - WBC 13.0 - Flu/COVID/RSV negative Code(s): J20.9 - ACUTE BRONCHITIS, UNSPECIFIED (3) Diarrhea Current Visit: Yes Status: Acute Assessment & Plan: - Probiotic - C-Diff testing - IVF Code(s): R19.7 - DIARRHEA, UNSPECIFIED (4) Depression with anxiety Current Visit: Yes Status: Chronic Assessment & Plan: - Continue home meds Code(s): F41.8 - OTHER SPECIFIED ANXIETY DISORDERS (5) Hyperlipidemia Current Visit: Yes Status: Chronic Assessment & Plan: - Continue Statin VTE: SCD's Next of KIN: D/C plan: 1-2 days Code status: Full Plan of care time: > 40 minutes Code(s): E78.5 - HYPERLIPIDEMIA, UNSPECIFIED (6) Type II diabetes mellitus Current Visit: Yes Status: Chronic Qualifiers: Diabetes mellitus mcfp insulin use: without mcfp use Diabetes mellitus complication status: with neurologic complications Diabetes mellitus complication detail: with polyneuropathy Qualified Code(s): E11.42 - Type 2 diabetes mellitus with diabetic polyneuropathy Assessment & Plan: - A1C pending - Not currenlty taking any meds for DM VTE: Lovenox PPI: Protonix Next of KIN: D/C plan: 1-2 days Code status: Full Plan of care time > 45 minutes Telemedicine Encounter - Telemedicine Encounter Telemedicine Encounter: "The entirety of this encounter was performed via Telemedicine" This visit was performed using real-time audio and video connection between my location and thepatients locationwith the assistance of a surrogateat the patients location. Written or verbal consent was obtained from the patient/guardian to perform this visit [facility]. Any patient questions regarding the telemedicine interaction were answered.
[2025-09-15] MEDS ORDERED: DUONEB 0.5-3 MG/3 ml Neb IH PRN (18:32)
[2025-09-15] MEDS ORDERED: ZITHROMAX IV IV ONE (18:35)
[2025-09-15] MEDS ORDERED: ATARAX 25 MG PO PRN (18:42)
[2025-09-15] MEDS: TYLENOL 325 MG PO PRN (20:45)
[2025-09-15] MEDS ORDERED: NON-FORMULARY ITEM (Gabapentin [Gabapentin] 800 MG Tablet) PO SCH (22:00)
[2025-09-15] MEDS: Mucinex 600MG ER Tabs PO SCH (23:06)
[2025-09-15] MEDS: BUSPAR 5 MG PO SCH (23:06)
[2025-09-16] MEDS: Tessalon Perles 100 MG PO PRN (01:46)
[2025-09-16 04:38] LABS: BASOPHIL % 0.6 % (0.2-1.2); Basophil (Absolute #) 0.06 x10^3/uL (0.01-0.08); Eosinophil (Absolute #) 0.21 x10^3/uL (0.04-0.54); Hematocrit 40.3 % (40.1-51.0); Hemoglobin 13.6 g/dL (13.7-17.5); IMMATURE GRAN # 0.03 x10^3u/L (0.001-0.031); IMMATURE GRAN % 0.3 % (0.001-0.429); Lymphocyte (Absolute #) 1.66 x10^3/uL (1.32-3.57); Mean Corpuscular Hemoglobin 30.2 pg (25.7-32.2); Mean Corpuscular Hgb Concent. 33.7 g/dL (32.3-36.5); Monocyte (Absolute #) 0.70 x10^3/uL (0.30-0.82); NUCLEATED RBC # 0.00 x10^3u/L (0.00-0.012); NUCLEATED RBC % 0.0 % (0.00-0.2); Platelet Count 300 x10^3/uL (163-337); Red Blood Count 4.50 x10^6/uL (4.63-6.08); White Blood Count 10.2 x10^3/uL (4.23-9.07)
[2025-09-16 05:21] LABS: Calcium 8.7 mg/dL (8.4-10.2); Carbon Dioxide 21.0 mmol/L (22-30); Creatinine 1 0.82 mg/dL (0.66-1.25); EST GLOMERULAR FILTRATION RATE 99.3 ML/MIN; Glucose 131.0 mg/dL (74-106); Potassium 3.6 mmol/L (3.5-5.1)
[2025-09-16] MEDS ORDERED: MOTRIN 600 MG PO PRN (07:57)
[2025-09-16] MEDS: Flonase NASAL NS SCH (08:03)
--- NOTE | 2025-09-16 09:06 | PCM.NOTE ---
Date and Time: 09/16/25 0858 Subjective Assessment: 09/15/25 is a 60-year-old male with a past medical history of disabled d/t neuropathy, hypertension, hyperlipidemia, type II diabetes mellitus, gastroesophageal reflux disease, anxiety, depression, and restless leg syndrome. He presented to the emergency department with a two-week history of cough and nasal congestion. His reports that the symptoms began shortly after he received his COVID-19, influenza, and pneumococcal vaccinations, all administered during the same visit. The patient describes a moderate, nonproductive cough associated with shortness of breath and fatigue. He notes that his symptoms improve somewhat when lying down. After further discussion, the patient reports experiencing diarrhea for approximately two weeks, with poor appetite and difficulty keeping food down, though he denies vomiting. He has tried several [id number] medications, including Tylenol Cold and Flu, NyQuil, Tylenol Extra Strength, and cough drops, without significant relief. He also reports cold chills, body aches, shortness of breath, wheezing, and coughing up yellow mucus. He denies any known sick contacts and believes his symptoms began following his vaccinations. On evaluation, he was afebrile and maintaining oxygen saturation of 98% on room air. Laboratory studies were overall unremarkable except for a mildly elevated white blood cell count. Chest X-ray was negative for any acute cardiopulmonary process. In the emergency department, he was started on ceftriaxone and a zithromycin for suspected bronchitis and upper respiratory infection. The patient requested inpatient admission due to persistent symptoms, weakness, and overall fatigue; therefore, he will be admitted for overnight observation. 09/16/25 The patient is resting in bed and reports that he is feeling bad today. He is experiencing fever, chills, and a sinus headache. Symptomatic treatment was provided with ibuprofen and Tylenol, and Flonase was recommended to help relieve sinus symptoms. He remains on Rocephin for a sinusitis infection. His white blood cell count today is 10.2. Hemoglobin A1c is 7.86, indicating uncontrolled type 2 diabetes. On review of admission records, the patient is not currently taking any medications for diabetes. He states that he was recently started on Ozempic but has not yet picked up the prescription or started the medication. His current temperature is 99.0F. The C. difficile test result is still pending, and he continues to have diarrhea. Probiotics will be continued in the meantime. The patient has requested to advance his diet, and the nurse has been instructed to advance as tolerated with diabetic-friendly options. He also expressed a desire to stay an additional day in the hospital, which has been approved by case management. He denies chest pain, shortness of breath, abdominal pain, nausea, or vomiting at this time. - Review of Systems Constitutional: Fever, Chills, Fatigue, Malaise Eyes: No Symptoms Ears, Nose, & Throat: No Symptoms, Nose Congestion, Sinus Drainage Respiratory: Wheezing, No Cough, No Short Of Breath Cardiac: No Chest Pain, No Edema, No Syncope Abdominal/Gastrointestinal: No Abdominal Pain, No Nausea, No Vomiting, No Diarrhea Genitourinary Symptoms: No Dysuria Musculoskeletal: No Back Pain, No Neck Pain Skin: No Rash Neurological: Headache, No Dizziness, No Focal Weakness, No Sensory Changes Psychological: No Symptoms Endocrine: No Symptoms Hematologic/Lymphatic: No Symptoms Immunological/Allergic: No Symptoms Objective Exam General Appearance: no apparent distress, alert Neurologic Exam: alert, oriented x 3, cooperative, proofreader II-XII nml as tested, normal mood/affect, nml cerebellar function, sensation nml, No motor deficits Skin Exam: normal color, warm, dry Eye Exam: PERRL, EOMI, eyes nml inspection Ears, Nose, Throat Exam: pharynx normal, moist mucous membranes, other (sinus pain with palpation) Neck Exam: normal inspection, non-tender, supple, full range of motion Respiratory Exam: wheezing, No respiratory distress Cardiovascular Exam: regular rate/rhythm, normal heart sounds Gastrointestinal/Abdomen Exam: soft, No tenderness, No mass Extremity Exam: normal inspection, normal range of motion Back Exam: normal inspection, normal range of motion, No CVA tenderness, No vertebral tenderness Male Genitalia Exam: deferred Rectal Exam: deferred Objective Data Vital Signs: Vital Signs - 24 hr Temp Pulse Resp BP BP Pulse Ox 09/16/25 07:43 96 09/16/25 07:40 92 H 14 96 09/16/25 03:52 99.0 F 109 H 18 135/70 92 L 09/15/25 22:00 98.3 F 91 H 17 133/76 96 09/15/25 18:32 98.1 F 96 H 18 138/73 97 09/15/25 18:03 98.1 F 96 H 18 138/73 97 09/15/25 17:14 96 09/15/25 17:00 96 H 19 145/89 97 09/15/25 16:30 102 H 17 149/91 98 09/15/25 16:00 111 H 16 150/86 98 09/15/25 15:40 100 H 18 98 09/15/25 15:30 105 H 20 168/75 96 09/15/25 15:00 102 H 19 154/89 98 09/15/25 14:51 98.5 F 98 H 14 154/89 96 Pain Assessment - Last Documented Pain Intensity 10 Pain Scale Used 0-10 Pain Scale Intake and Output: Intake & Output 09/13/25 09/14/25 09/15/25 09/16/25 11:59 11:59 11:59 11:59 Intake Total 2136 Output Total 1150 Balance 986 Weight 87.1 kg Lab Results: Lab Results-Last 24 Hours 09/15/25 09/15/25 09/15/25 Range/Units 15:25 15:25 15:25 WBC 13.0 H (4.23-9.07) x10^3/uL RBC 4.72 (4.63-6.08) x10^6/uL Hgb 14.3 (13.7-17.5) g/dL Hct 42.8 (40.1-51.0) % MCV 90.7 (79.0-92.2) fL MCH 30.3 (25.7-32.2) pg MCHC 33.4 (32.3-36.5) g/dL RDW 11.9 (11.6-14.4) % Plt Count 298 (163-337) x10^3/uL MPV 8.9 L (9.4-12.4) fL Gran % 76.2 H (34.0-67.9) % Immature Gran % (Auto) 0.2 (0.001-0.429) % Nucleat RBC Rel Count 0.0 (0.00-0.2) % Eos # (Auto) 0.14 (0.04-0.54) x10^3/uL Immature Gran # (Auto) 0.02 (0.001-0.031) x10^3u/L Absolute Lymphs (auto) 1.85 (1.32-3.57) x10^3/uL Absolute Monos (auto) 1.00 H (0.30-0.82) x10^3/uL Absolute Nucleated RBC 0.00 (0.00-0.012) x10^3u/L Lymphocytes % 14.3 L (21.8-53.1) % Monocytes % 7.7 (5.3-12.2) % Eosinophils % 1.1 (0.8-7.0) % Basophils % 0.5 (0.2-1.2) % Absolute Granulocytes 9.91 H (1.78-5.38) x10^3/uL Basophils # 0.06 (0.01-0.08) x10^3/uL pO2/FiO2 Ratio % VBG pH (7.32-7.42) VBG pCO2 at Pat Temp (42-55) mm/Hg VBG pO2 at Pat Temp (25-40) mm/Hg VBG HCO3 (22-28) meq/L VBG O2 Sat (Lillian) (95-100) VBG Base Excess (-2.0-2.0) VBG Hemoglobin VBG Carboxyhemoglobin (0.0-6.9) % T HGB POC Potassium (3.5-5.1) Sodium 136 (135-145) mmol/L Potassium 3.7 (3.5-5.1) mmol/L Chloride 105 (98-107) mmol/L Carbon Dioxide 22 (22-30) mmol/L Anion Gap 13.3 (5-15) MEQ/L BUN 17 (9-20) mg/dL Creatinine 1.21 (0.66-1.25) mg/dL Estimated GFR 67.7 ML/MIN Glucose 183 H (74-106) mg/dL POC Glucometer (74 to 106) mg/dL Hemoglobin A1c (4.5-6.0) % Lactic Acid 0.9 (0.4-2.0) Calcium 9.2 (8.4-10.2) mg/dL Total Bilirubin 0.40 (0.2-1.3) mg/dL AST 28 (17-59) U/L ALT 24 (0-50) U/L Alkaline Phosphatase 89 (38-126) U/L Serum Total Protein 8.0 (6.3-8.2) g/dL Albumin 4.1 (3.5-5.0) g/dL Influenza Type A Ag (NEGATIVE) Influenza Type B Ag (NEGATIVE) RSV (PCR) (NEGATIVE) SARS-CoV-2 (PCR) (NEGATIVE) 09/15/25 09/15/25 09/15/25 Range/Units 15:25 15:25 15:33 WBC (4.23-9.07) x10^3/uL RBC (4.63-6.08) x10^6/uL Hgb (13.7-17.5) g/dL Hct (40.1-51.0) % MCV (79.0-92.2) fL MCH (25.7-32.2) pg MCHC (32.3-36.5) g/dL RDW (11.6-14.4) % Plt Count (163-337) x10^3/uL MPV (9.4-12.4) fL Gran % (34.0-67.9) % Immature Gran % (Auto) (0.001-0.429) % Nucleat RBC Rel Count (0.00-0.2) % Eos # (Auto) (0.04-0.54) x10^3/uL Immature Gran # (Auto) (0.001-0.031) x10^3u/L Absolute Lymphs (auto) (1.32-3.57) x10^3/uL Absolute Monos (auto) (0.30-0.82) x10^3/uL Absolute Nucleated RBC (0.00-0.012) x10^3u/L Lymphocytes % (21.8-53.1) % Monocytes % (5.3-12.2) % Eosinophils % (0.8-7.0) % Basophils % (0.2-1.2) % Absolute Granulocytes (1.78-5.38) x10^3/uL Basophils # (0.01-0.08) x10^3/uL pO2/FiO2 Ratio 21.0 % VBG pH 7.44 H (7.32-7.42) VBG pCO2 at Pat Temp 34 L (42-55) mm/Hg VBG pO2 at Pat Temp 89 H (25-40) mm/Hg VBG HCO3 23.1 (22-28) meq/L VBG O2 Sat (Lillian) 97.7 (95-100) VBG Base Excess -0.4 (-2.0-2.0) VBG Hemoglobin 15.3 VBG Carboxyhemoglobin 3.1 (0.0-6.9) % T HGB POC Potassium 3.8 (3.5-5.1) Sodium (135-145) mmol/L Potassium (3.5-5.1) mmol/L Chloride (98-107) mmol/L Carbon Dioxide (22-30) mmol/L Anion Gap (5-15) MEQ/L BUN (9-20) mg/dL Creatinine (0.66-1.25) mg/dL Estimated GFR ML/MIN Glucose (74-106) mg/dL POC Glucometer (74 to 106) mg/dL Hemoglobin A1c 7.86 H (4.5-6.0) % Lactic Acid (0.4-2.0) Calcium (8.4-10.2) mg/dL Total Bilirubin (0.2-1.3) mg/dL AST (17-59) U/L ALT (0-50) U/L Alkaline Phosphatase (38-126) U/L Serum Total Protein (6.3-8.2) g/dL Albumin (3.5-5.0) g/dL Influenza Type A Ag NEGATIVE (NEGATIVE) Influenza Type B Ag NEGATIVE (NEGATIVE) RSV (PCR) NEGATIVE (NEGATIVE) SARS-CoV-2 (PCR) NEGATIVE (NEGATIVE) 09/16/25 09/16/25 09/16/25 Range/Units 04:21 04:21 07:55 WBC 10.2 H (4.23-9.07) x10^3/uL RBC 4.50 L (4.63-6.08) x10^6/uL Hgb 13.6 L (13.7-17.5) g/dL Hct 40.3 (40.1-51.0) % MCV 89.6 (79.0-92.2) fL MCH 30.2 (25.7-32.2) pg MCHC 33.7 (32.3-36.5) g/dL RDW 12.1 (11.6-14.4) % Plt Count 300 (163-337) x10^3/uL MPV 9.2 L (9.4-12.4) fL Gran % 73.8 H (34.0-67.9) % Immature Gran % (Auto) 0.3 (0.001-0.429) % Nucleat RBC Rel Count 0.0 (0.00-0.2) % Eos # (Auto) 0.21 (0.04-0.54) x10^3/uL Immature Gran # (Auto) 0.03 (0.001-0.031) x10^3u/L Absolute Lymphs (auto) 1.66 (1.32-3.57) x10^3/uL Absolute Monos (auto) 0.70 (0.30-0.82) x10^3/uL Absolute Nucleated RBC 0.00 (0.00-0.012) x10^3u/L Lymphocytes % 16.3 L (21.8-53.1) % Monocytes % 6.9 (5.3-12.2) % Eosinophils % 2.1 (0.8-7.0) % Basophils % 0.6 (0.2-1.2) % Absolute Granulocytes 7.54 H (1.78-5.38) x10^3/uL Basophils # 0.06 (0.01-0.08) x10^3/uL pO2/FiO2 Ratio % VBG pH (7.32-7.42) VBG pCO2 at Pat Temp (42-55) mm/Hg VBG pO2 at Pat Temp (25-40) mm/Hg VBG HCO3 (22-28) meq/L VBG O2 Sat (Lillian) (95-100) VBG Base Excess (-2.0-2.0) VBG Hemoglobin VBG Carboxyhemoglobin (0.0-6.9) % T HGB POC Potassium (3.5-5.1) Sodium 136 (135-145) mmol/L Potassium 3.6 (3.5-5.1) mmol/L Chloride 107 (98-107) mmol/L Carbon Dioxide 21 L (22-30) mmol/L Anion Gap 11.5 (5-15) MEQ/L BUN 12 (9-20) mg/dL Creatinine 0.82 (0.66-1.25) mg/dL Estimated GFR 99.3 ML/MIN Glucose 131 H (74-106) mg/dL POC Glucometer 155 H (74 to 106) mg/dL Hemoglobin A1c (4.5-6.0) % Lactic Acid (0.4-2.0) Calcium 8.7 (8.4-10.2) mg/dL Total Bilirubin (0.2-1.3) mg/dL AST (17-59) U/L ALT (0-50) U/L Alkaline Phosphatase (38-126) U/L Serum Total Protein (6.3-8.2) g/dL Albumin (3.5-5.0) g/dL Influenza Type A Ag (NEGATIVE) Influenza Type B Ag (NEGATIVE) RSV (PCR) (NEGATIVE) SARS-CoV-2 (PCR) (NEGATIVE) Radiology Exams: Radiology Procedures Category Date Time Status CHEST 1 VIEW (PORTABLE) Stat Exams 09/15/25 15:15 Completed Medications: Medications Generic Name Dose Route Start Last Admin Trade Name Freq PRN Reason Stop Dose Admin Acetaminophen 650 mg 09/15/25 18:46 09/16/25 08:47 Acetaminophen 325 Mg Tablet PO 10/15/25 18:45 650 mg Q6H PRN PRN Administration PAIN AND/OR FEVER Albuterol/Ipratropium 3 ml 09/15/25 18:32 Ipratropium/Albuterol Sulfate 3 Ml Ampul.Neb IH 10/15/25 18:31 Q4HPRN PRN SHORTNESS OF BREATH/WHEEZING Aspirin 81 mg 09/16/25 10:00 Aspirin 81 Mg Tablet.Ec PO 10/16/25 09:59 DAILY MOUNIKA Benzonatate 100 mg 09/15/25 18:02 09/16/25 08:04 Benzonatate 100 Mg Capsule PO 10/15/25 18:01 100 mg TID PRN PRN Administration COUGH Buspirone HCl 5 mg 09/15/25 22:00 09/15/25 23:06 Buspirone Hcl 5 Mg Tablet PO 10/15/25 21:59 5 mg BID MOUNIKA Administration Enoxaparin Sodium 40 mg 09/16/25 10:00 Enoxaparin Sodium 40 Mg/0.4 Ml Syringe SQ 10/16/25 09:59 DAILY MOUNIKA Fluticasone Propionate 0 gm 09/16/25 10:00 09/16/25 08:03 Fluticasone Propionate 16 Gm Bottle Nasal [place] NS 10/16/25 09:59 16 gm DAILY MOUNIKA Administration Gabapentin 800 mg 09/15/25 22:00 09/16/25 08:43 Gabapentin 400 Mg Capsule PO 10/15/25 21:59 800 mg TID MOUNIKA Administration Guaifenesin 600 mg 09/15/25 22:00 09/16/25 08:43 Guaifenesin 600 Mg Tablet Er PO 10/15/25 21:59 600 mg BID MOUNIKA Administration Hydroxyzine HCl 25 mg 09/15/25 18:42 Hydroxyzine Hcl 25 Mg Tablet PO 10/15/25 18:41 TID PRN PRN ANXIETY Sodium Chloride 1,000 mls @ 100 mls/hr 09/15/25 17:15 09/16/25 03:26 Sodium Chloride 0.9% 1000 Ml IV 10/15/25 17:14 100 mls/hr .Q10H MOUNIKA Administration Ceftriaxone Sodium 1 gm in 100 mls @ 200 mls/hr 09/16/25 10:00 Rocephin 1 Gm / 100 Ml Nacl IV 10/16/25 09:59 Q24H10 [facility] Ibuprofen 600 mg 09/16/25 07:57 Ibuprofen 600 Mg Tablet PO 10/16/25 07:56 Q8HPRN PRN MODERATE PAIN Lactobacillus Acidophilus 1 tab 09/16/25 10:00 Lactobacillus Acidophilus 1 Tab Tablet PO 10/16/25 09:59 DAILY [facility] Pantoprazole Sodium 40 mg 09/16/25 10:00 Protonix (Pantoprazole) 40 Mg Tablet PO 10/16/25 09:59 DAILY [facility] Prochlorperazine Edisylate 10 mg 09/15/25 18:40 Prochlorperazine Edisylate 10 Mg/2 Ml Vial IV 10/15/25 18:39 Q6H PRN PRN NAUSEA/VOMITING Simvastatin 40 mg 09/16/25 10:00 Simvastatin 20 Mg Tablet PO 10/16/25 09:59 DAILY [facility] Discontinued Medications Generic Name Dose Route Start Last Admin Trade Name Freq PRN Reason Stop Dose Admin Hydrocodone Bitart/Acetaminophen 1 tab 09/15/25 15:32 09/15/25 15:34 Hydrocodone/Apap 5/325 1 Tab Tablet PO 09/15/25 15:33 1 tab STAT ONE Administration Hydrocodone Bitart/Acetaminophen Confirm 09/15/25 15:34 Hydrocodone/Apap 5/325 1 Tab Tablet Administered 09/15/25 15:35 Dose 1 tab .ROUTE .STK-MED ONE Albuterol Sulfate 5 mg 09/15/25 15:15 09/15/25 15:33 Albuterol Sulfate 2.5 Mg/3 Ml Neb IH 09/15/25 15:16 5 mg STAT ONE Administration Albuterol Sulfate Confirm 09/15/25 15:25 Albuterol Sulfate 2.5 Mg/3 Ml Neb Administered 09/15/25 15:26 Dose 5 mg IH .STK-MED ONE Azithromycin Confirm 09/15/25 18:35 Azithromycin Inj Administered 09/15/25 18:36 Dose 500 mg IV .STK-MED ONE Ceftriaxone Sodium 1 gm in 100 mls @ 200 mls/hr 09/15/25 17:12 09/15/25 17:17 Rocephin 1 Gm / 100 Ml Nacl IV 09/15/25 17:41 200 ml/hr STAT ONE 200 mls/hr Administration Azithromycin 500 mg/ Sodium 250 mls @ 250 mls/hr 09/15/25 17:13 Chloride IV 09/15/25 18:12 STAT STA Ceftriaxone Sodium Confirm 09/15/25 17:16 Rocephin 1 Gm / 100 Ml Nacl Administered 09/15/25 17:17 Dose 1 gm in 100 mls @ ud IV .STK-MED ONE Sodium Chloride Confirm 09/15/25 18:36 Sodium Chloride 0.9% Administered 09/15/25 18:37 Dose 100 mls @ ud .ROUTE .STK-MED ONE Assessment/Plan (1) Acute bacterial sinusitis Current Visit: Yes Status: Acute Code(s): J01.90 - ACUTE SINUSITIS, UNSPECIFIED; B96.89 - OTH BACTERIAL AGENTS THE CAUSE OF DISEASES CLASSD ELSWHR (2) Acute bronchitis Current Visit: Yes Status: Acute Qualifiers: Bronchitis organism: unspecified organism Qualified Code(s): J20.9 - Acute bronchitis, unspecified Code(s): J20.9 - ACUTE BRONCHITIS, UNSPECIFIED (3) Diarrhea Current Visit: Yes Status: Acute Code(s): R19.7 - DIARRHEA, UNSPECIFIED (4) Depression with anxiety Current Visit: Yes Status: Chronic Code(s): F41.8 - OTHER SPECIFIED ANXIETY DISORDERS (5) Hyperlipidemia Current Visit: Yes Status: Chronic Code(s): E78.5 - HYPERLIPIDEMIA, UNSPECIFIED (6) Type II diabetes mellitus Current Visit: Yes Status: Chronic Qualifiers: Diabetes mellitus buttermaker insulin use: with half-way use Diabetes mellitus complication status: with neurologic complications Diabetes mellitus complication detail: with polyneuropathy Qualified Code(s): E11.42 - Type 2 diabetes mellitus with diabetic polyneuropathy; Z79.4 - exterminator (current) use of insulin Assessment & Plan: (1) Acute bacterial sinusitis Current Visit: Yes Status: Acute Assessment & Plan: - Ceftriaxone IV - CBC, CMP reviewed - Flonase - Flu/COVID/RSV negative - Tylenol, compazine PRN 09/16 - + H/A today from sinus pressure and pain - IBP added - Temp 99 today - Advance diet as tolerated Code(s): J01.90 - ACUTE SINUSITIS, UNSPECIFIED; B96.89 - OTH BACTERIAL AGENTS THE CAUSE OF DISEASES CLASSD ELSWHR (2) Acute bronchitis Current Visit: Yes Status: Acute Qualifiers: Bronchitis organism: unspecified organism Qualified Code(s): J20.9 - Acute bronchitis, unspecified Assessment & Plan: - CXR negative for acute concern - Tessalon, mucinex, duonebs - RA 96% - WBC 13.0 - Flu/COVID/RSV negative 09/16 - CBC, CMP reviewed - WBC 10.2- improved - + wheezing Code(s): J20.9 - ACUTE BRONCHITIS, UNSPECIFIED (3) Diarrhea Current Visit: Yes Status: Acute Assessment & Plan: - Probiotic daily - C-Diff testing pending - IVF Code(s): R19.7 - DIARRHEA, UNSPECIFIED (4) Depression with anxiety Current Visit: Yes Status: Chronic Assessment & Plan: - Continue home meds Code(s): F41.8 - OTHER SPECIFIED ANXIETY DISORDERS (5) Hyperlipidemia Current Visit: Yes Status: Chronic Assessment & Plan: - Continue Statin Code(s): E78.5 - HYPERLIPIDEMIA, UNSPECIFIED (6) Type II diabetes mellitus Current Visit: Yes Status: Chronic Qualifiers: Diabetes mellitus half-way insulin use: with buttermaker use Diabetes mellitus complication status: with neurologic complications Diabetes mellitus complication detail: with polyneuropathy Qualified Code(s): E11.42 - Type 2 diabetes mellitus with diabetic polyneuropathy Assessment & Plan: - A1C 7.86- uncontrolled - Pt states he was started on Ozempic the day he received his immunizations and has yet to start it yet. - Claudio AC/HS - Humalog s/s VTE: Lovenox PPI: Protonix Next of KIN: D/C plan: tomorrow Code status: Full Plan of care time > 45 minutes
[2025-09-16] MEDS: ROCEPHIN 1 GM / 100 ML NaCl 1 GM/100 ML IVPB IV SCH (09:57)
[2025-09-16] MEDS: Compazine 10 MG/2 ML IV PRN (09:57)
[2025-09-16] MEDS: ENOXAPARIN SODIUM SQ SCH (09:58)
[2025-09-16] MEDS: Acidophilus TABLET PO SCH (09:58)
[2025-09-16] MEDS: ECOTRIN 81 MG PO SCH (09:59)
[2025-09-16] MEDS: Protonix 40MG Tablet PO SCH (09:59)
[2025-09-16] MEDS ORDERED: ZOCOR 20MG PO SCH (10:00)
[2025-09-16] MEDS ORDERED: Protonix 20MG Tablet PO SCH (10:00)
[2025-09-16] MEDS ORDERED: NON-FORMULARY ITEM (Rosuvastatin Calcium [Rosuvastatin Calcium] 20 MG Tablet) PO SCH (10:00)
[2025-09-16] MEDS ORDERED: NON-FORMULARY ITEM (Omeprazole [Omeprazole] 40 MG Capsule.Dr) PO SCH (10:00)
[2025-09-16] MEDS: HUMALOG SQ PRN (10:01)
[2025-09-16] MEDS: ZOCOR 20MG PO SCH (21:04)
[2025-09-16 23:23] VITALS: O2SAT 96
[2025-09-17 05:27] LABS: Hematocrit 40.5 % (40.1-51.0); Hemoglobin 13.1 g/dL (13.7-17.5); Mean Corpuscular Hemoglobin 30.4 pg (25.7-32.2); Mean Corpuscular Hgb Concent. 32.3 g/dL (32.3-36.5); Platelet Count 276 x10^3/uL (163-337); Red Blood Count 4.31 x10^6/uL (4.63-6.08); White Blood Count 10.2 x10^3/uL (4.23-9.07)
[2025-09-17 06:04] LABS: Calcium 9.0 mg/dL (8.4-10.2); Carbon Dioxide 24.0 mmol/L (22-30); Creatinine 1 0.95 mg/dL (0.66-1.25); EST GLOMERULAR FILTRATION RATE 90.5 ML/MIN; Glucose 140.0 mg/dL (74-106); Potassium 3.8 mmol/L (3.5-5.1); SGOT/AST 28.0 U/L (17-59); SGPT/ALT 29.0 U/L (0-50); Total Protein 7.4 g/dL (6.3-8.2)
--- NOTE | 2025-09-17 10:29 | PCM.DS ---
Discharge Summary Date of Admission: 09/15/25 17:47 Date of Discharge: 09/17/25 Admitting Physician: PHAM THORNTON MD Primary Care Provider: CHAD EM Allergies Allergies lisinopril Allergy (Verified 09/15/25 14:58) Hospital Summary - Hospital Course Hospital Course: 09/15/25 is a 60-year-old male with a past medical history of disabled d/t neuropathy, hypertension, hyperlipidemia, type II diabetes mellitus, gastroesophageal reflux disease, anxiety, depression, and restless leg syndrome. He presented to the emergency department with a two-week history of cough and nasal congestion. His reports that the symptoms began shortly after he received his COVID-19, influenza, and pneumococcal vaccinations, all administered during the same visit. The patient describes a moderate, nonproductive cough associated with shortness of breath and fatigue. He notes that his symptoms improve somewhat when lying down. After further discussion, the patient reports experiencing diarrhea for approximately two weeks, with poor appetite and difficulty keeping food down, though he denies vomiting. He has tried several [id number] medications, including Tylenol Cold and Flu, NyQuil, Tylenol Extra Strength, and cough drops, without significant relief. He also reports cold chills, body aches, shortness of breath, wheezing, and coughing up yellow mucus. He denies any known sick contacts and believes his symptoms began following his vaccinations. On evaluation, he was afebrile and maintaining oxygen saturation of 98% on room air. Laboratory studies were overall unremarkable except for a mildly elevated white blood cell count. Chest X-ray was negative for any acute cardiopulmonary process. In the emergency department, he was started on ceftriaxone and azithromycin for suspected bronchitis and upper respiratory infection. The patient requested inpatient admission due to persistent symptoms, weakness, and overall fatigue; therefore, he will be admitted for overnight observation. 09/16/25 The patient is resting in bed and reports that he is feeling bad today. He is experiencing fever, chills, and a sinus headache. Symptomatic treatment was provided with ibuprofen and Tylenol, and Flonase was recommended to help relieve sinus symptoms. He remains on Rocephin for a sinusitis infection. His white blood cell count today is 10.2. Hemoglobin A1c is 7.86, indicating uncontrolled type 2 diabetes. On review of admission records, the patient is not currently taking any medications for diabetes. He states that he was recently started on Ozempic but has not yet picked up the prescription or started the medication. His current temperature is 99.0F. The C. difficile test result is still pending, and he continues to have diarrhea. Probiotics will be continued in the meantime. The patient has requested to advance his diet, and the nurse has been instructed to advance as tolerated with diabetic-friendly options. He also expressed a desire to stay an additional day in the hospital, which has been approved by case management. He denies chest pain, shortness of breath, abdominal pain, nausea, or vomiting at this time. 09/17/25 Pt is resting in bed. He continues to have nasal congestion. He is ready to d/c home today. Will d/c with PO antibiotic for sinusitis. We were unable to obtain stool sample for c-diff as he has had no further diarrhea since admission per staff. Advised pt to start ozempic for Type II DM when home as prescribed since he has yet to start this yet. He denies any further concerns at this time. Patient ready to discharge home today. - Vitals & Intake/Output Vital Signs: Vital Signs Temperature 98.7 F 09/17/25 07:00 Pulse Rate 86 09/17/25 07:30 Respiratory Rate 20 09/17/25 07:30 Blood Pressure 153/79 09/17/25 07:00 O2 Sat by Pulse Oximetry 96 09/17/25 07:30 Intake & Output: Intake & Output 09/14/25 09/15/25 09/16/25 09/17/25 11:59 11:59 11:59 11:59 Intake Total 2736 4371 Output Total 1550 1100 Balance 1186 3271 Weight 87.1 kg - Lab Result Diagrams: 09/17/25 04:17 09/17/25 04:17 Lab Results-Last 24 Hrs: Lab Results-Last 24 Hours 09/16/25 09/16/25 09/16/25 Range/Units 11:32 16:33 21:12 WBC (4.23-9.07) x10^3/uL RBC (4.63-6.08) x10^6/uL Hgb (13.7-17.5) g/dL Hct (40.1-51.0) % MCV (79.0-92.2) fL MCH (25.7-32.2) pg MCHC (32.3-36.5) g/dL RDW (11.6-14.4) % Plt Count (163-337) x10^3/uL MPV (9.4-12.4) fL Sodium (135-145) mmol/L Potassium (3.5-5.1) mmol/L Chloride (98-107) mmol/L Carbon Dioxide (22-30) mmol/L Anion Gap (5-15) MEQ/L BUN (9-20) mg/dL Creatinine (0.66-1.25) mg/dL Estimated GFR ML/MIN Glucose (74-106) mg/dL POC Glucometer 141 H 110 H 195 H (74 to 106) mg/dL Calcium (8.4-10.2) mg/dL Total Bilirubin (0.2-1.3) mg/dL AST (17-59) U/L ALT (0-50) U/L Alkaline Phosphatase (38-126) U/L Serum Total Protein (6.3-8.2) g/dL Albumin (3.5-5.0) g/dL 09/17/25 09/17/25 09/17/25 Range/Units 04:17 04:17 07:11 WBC 10.2 H (4.23-9.07) x10^3/uL RBC 4.31 L (4.63-6.08) x10^6/uL Hgb 13.1 L (13.7-17.5) g/dL Hct 40.5 (40.1-51.0) % MCV 94.0 H (79.0-92.2) fL MCH 30.4 (25.7-32.2) pg MCHC 32.3 (32.3-36.5) g/dL RDW 11.9 (11.6-14.4) % Plt Count 276 (163-337) x10^3/uL MPV 10.6 (9.4-12.4) fL Sodium 139 (135-145) mmol/L Potassium 3.8 (3.5-5.1) mmol/L Chloride 107 (98-107) mmol/L Carbon Dioxide 24 (22-30) mmol/L Anion Gap 12.4 (5-15) MEQ/L BUN 11 (9-20) mg/dL Creatinine 0.95 (0.66-1.25) mg/dL Estimated GFR 90.5 ML/MIN Glucose 140 H (74-106) mg/dL POC Glucometer 183 H (74 to 106) mg/dL Calcium 9.0 (8.4-10.2) mg/dL Total Bilirubin 0.30 (0.2-1.3) mg/dL AST 28 (17-59) U/L ALT 29 (0-50) U/L Alkaline Phosphatase 76 (38-126) U/L Serum Total Protein 7.4 (6.3-8.2) g/dL Albumin 3.8 (3.5-5.0) g/dL Micro Results-Entire Visit: Microbiology 09/15/25 17:30 Blood Culture - Preliminary Blood 09/15/25 17:24 Blood Culture - Preliminary Blood Accuchecks Date 09/17/25 Date 09/16/25 Date 09/16/25 Time 07:38 - Radiology Exams Ordered Rad Exams-Entire Visit: Radiology Procedures Category Date Time Status CHEST 1 VIEW (PORTABLE) Stat Exams 09/15/25 15:15 Completed - Procedures and Test Procedures and Tests throughout Hospitalization: Therapy Orders & Screens 09/15/25 15:40 Respiratory Therapy Assessment DAILY Comment: Discharge Exam General Appearance: no apparent distress, alert Neurologic Exam: alert, oriented x 3, cooperative, normal mood/affect, nml cerebellar function, sensation nml, No motor deficits Eye Exam: PERRL, EOMI, eyes nml inspection Ears, Nose, Throat Exam: normal ENT inspection, pharynx normal, moist mucous membranes, other (nasal congestion) Neck Exam: normal inspection, non-tender, supple, full range of motion Respiratory Exam: normal breath sounds, lungs clear, No respiratory distress Cardiovascular Exam: regular rate/rhythm, normal heart sounds Gastrointestinal/Abdomen Exam: soft, No tenderness, No mass Male Genitalia Exam: deferred Rectal Exam: deferred Back Exam: normal inspection, normal range of motion, No CVA tenderness, No vertebral tenderness Extremity Exam: normal inspection, normal range of motion Skin Exam: normal color, warm, dry Final Diagnosis/Problem List - Final Discharge Diagnosis/Problem (1) Acute bacterial sinusitis Current Visit: Yes Status: Acute Code(s): J01.90 - ACUTE SINUSITIS, UNSPECIFIED; B96.89 - OTH BACTERIAL AGENTS THE CAUSE OF DISEASES CLASSD ELSWHR (2) Acute bronchitis Current Visit: Yes Status: Acute Code(s): J20.9 - ACUTE BRONCHITIS, UNSPECIFIED (3) Diarrhea Current Visit: Yes Status: Acute Code(s): R19.7 - DIARRHEA, UNSPECIFIED (4) Depression with anxiety Current Visit: Yes Status: Chronic Code(s): F41.8 - OTHER SPECIFIED ANXIETY DISORDERS (5) Hyperlipidemia Current Visit: Yes Status: Chronic Code(s): E78.5 - HYPERLIPIDEMIA, UNSPECIFIED (6) Type II diabetes mellitus Current Visit: Yes Status: Chronic Assessment & Plan: (1) Acute bacterial sinusitis Current Visit: Yes Status: Acute Assessment & Plan: - Ceftriaxone IV - CBC, CMP reviewed - Flonase - Flu/COVID/RSV negative - Tylenol, compazine PRN 09/16 - + H/A today from sinus pressure and pain - IBP added - Temp 99 today - Advance diet as tolerated 09/17 - No temp overnight - CBC, CMP reviewed - WBC 10.2- improving - D/C with flonase and antibiotic Code(s): J01.90 - ACUTE SINUSITIS, UNSPECIFIED; B96.89 - OTH BACTERIAL AGENTS THE CAUSE OF DISEASES CLASSD ELSWHR (2) Acute bronchitis Current Visit: Yes Status: Acute Qualifiers: Bronchitis organism: unspecified organism Qualified Code(s): J20.9 - Acute bronchitis, unspecified Assessment & Plan: - CXR negative for acute concern - Tessalon, mucinex, duonebs - RA 96% - WBC 13.0 - Flu/COVID/RSV negative 09/16 - CBC, CMP reviewed - WBC 10.2- improved - + wheezing 09/17 - Lungs clear Code(s): J20.9 - ACUTE BRONCHITIS, UNSPECIFIED (3) Diarrhea Current Visit: Yes Status: Acute Assessment & Plan: - Probiotic daily - C-Diff testing pending - IVF 09/17 - C-Diff not obtained as pt has not had diarrhea since admission Code(s): R19.7 - DIARRHEA, UNSPECIFIED (4) Depression with anxiety Current Visit: Yes Status: Chronic Assessment & Plan: - Continue home meds Code(s): F41.8 - OTHER SPECIFIED ANXIETY DISORDERS (5) Hyperlipidemia Current Visit: Yes Status: Chronic Assessment & Plan: - Continue Statin Code(s): E78.5 - HYPERLIPIDEMIA, UNSPECIFIED (6) Type II diabetes mellitus Current Visit: Yes Status: Chronic Qualifiers: Diabetes mellitus senior care insulin use: with senior care use Diabetes mellitus complication status: with neurologic complications Diabetes mellitus complication detail: with polyneuropathy Qualified Code(s): E11.42 - Type 2 diabetes mellitus with diabetic polyneuropathy Assessment & Plan: - A1C 7.86- uncontrolled - Pt states he was started on Ozempic the day he received his immunizations and has yet to start it yet. - Claudio AC/HS - Humalog s/s 09/17 - Start Ozempic when home D/C plan of care time > 40 minutes New meds: Doxycycline, flonase - Discharge Discharge Date: 09/17/25 Disposition: Home, Self-Care Condition: Fair Prescriptions: New Fluticasone Propionate [Flonase NASAL] 0 gm NS DAILY 10 Days #1 misc Continue Aspirin EC 81 mg [Ecotrin 81 mg] 81 mg PO DAILY Rosuvastatin Calcium 20 mg PO DAILY Omeprazole 40 mg PO DAILY Gabapentin 800 mg PO TID Hydroxyzine HCl 25 mg [Atarax 25 mg] 25 mg PO TID PRN PRN Reason: Anxiety Buspirone HCl 5 mg [Buspar 5 mg] 5 mg PO BID Instructions: Sinusitis in adults Additional Instructions: * You can buy probiotocs for diarrhea OTC if you found this helpful. You can also buy mucinex and cough medication OTC if needed. Follow up with: CHAD EM NP [Primary Care Provider, [facility]]
[2025-09-17 11:26] VITALS: PULSE 76; RESP 16; TEMP 98.4
[2025-09-17] MEDS: NORVASC 5 MG PO ONE (11:36)
[2025-09-17 13:18] VITALS: BP 131/76
== END 2025-09-17 14:30 | disposition home or self-care (01) ==
LOC: ED 14:50 → MED SURG 17:47
PROVIDERS: ADMIT Internal Medicine; ATTEND Internal Medicine
DX: J01.90 Acute sinusitis, unspecified (principal); B96.89 Other specified bacterial agents as the cause of diseases classified elsewhere; J20.9 Acute bronchitis, unspecified; R19.7 Diarrhea, unspecified; F41.8 Other specified anxiety disorders; E78.5 Hyperlipidemia, unspecified; E11.42 Type 2 diabetes mellitus with diabetic polyneuropathy; I10 Essential (primary) hypertension; K21.9 Gastro-esophageal reflux disease without esophagitis; Z79.4 Long term (current) use of insulin; Z79.899 Other long term (current) drug therapy
CPT/HCPCS: 36415; 71045; 80048; 80053; 82805; 82947; 83036; 83605; 85025; 85027; 87040; 87637; 93005; 93041; 94640; 94760; 99285; G0378